=== PATIENT | female | born 1960 | race Caucasian/White ===

== ENCOUNTER → 2018-07-10 14:57 | Outpatient (CLI) | payer OTHER, MEDICAID, SELFPAY ==
--- NOTE | 2018-07-10 15:05 | DI.RAD.S_ITS ---
PROCEDURE: XR ANKLE LT MIN 3V INDICATIONS: ankle pain TECHNIQUE: 3 views of the ankle were acquired. COMPARISON: None. FINDINGS: Bones: No fractures or dislocations. Ankle mortise is normally aligned. No suspicious bony lesions. Soft tissues: No tibiotalar joint effusion. Mild soft tissue swelling overlying the left medial malleolus. IMPRESSION: Mild soft tissue swelling overlying the left medial malleolus. No underlying osseous abnormality of the left ankle to explain patient's reported ankle pain. Dictated by: Buddy Rodriguez M.D. on 07/10/2018 at 15:29 Approved by: Buddy Rodriguez M.D. on 07/10/2018 at 15:32
== END ==
PROVIDERS: Family Provider Specialist; PCP Family Medicine; Visit Provider Physician Assistant
DX: M25.572 Pain in left ankle and joints of left foot (principal); M79.89 Other specified soft tissue disorders
CPT/HCPCS: 73610

== ENCOUNTER → 2018-07-14 07:17 | Outpatient (CLI) | payer OTHER, MEDICAID, SELFPAY ==
--- NOTE | 2018-07-14 07:17 | DI.US.S_ITS ---
PROCEDURE: US PERIPH VENOUS LOW EXTREM LT INDICATIONS: LEFT ANKLE EDEMA, PAIN TECHNIQUE: Real-time imaging, as well as color and pulse Doppler interrogation, were performed of the lower extremity deep veins from the inguinal ligament to the popliteal fossa. COMPARISON: None. FINDINGS: The common femoral, femoral and popliteal veins are normally compressible, and free of intraluminal thrombus. Color and pulse Doppler demonstrate normal phasic intraluminal flow. There is normal augmentation response to distal compression maneuver. IMPRESSION: No deep venous thrombosis identified within the left lower extremity. Dictated by: [facility] Interpreted: German Abad MD on 07/14/2018 at 8:39 Approved by: German Abad M.D. on 07/14/2018 at 13:19
== END ==
PROVIDERS: Family Provider Specialist; PCP Family Medicine; Visit Provider Student in an Organized Health Care Education/Training Program
DX: M79.672 Pain in left foot (principal); M25.472 Effusion, left ankle
CPT/HCPCS: 93971

== ENCOUNTER → 2018-07-22 16:46 | Outpatient (CLI) | payer OTHER, MEDICAID, SELFPAY ==
[2018-07-22 18:09] LABS: Blood Urea Nitrogen 21 mg/dL (7-17); Calcium 9.9 mg/dL (8.4-10.2); Carbon Dioxide 29 mmol/L (22-32); Chloride 104 mmol/L (98-107); Estimated Glomerular Filt Rate > 60.0 mL/min (>60); Glucose 95 mg/dL (70-100); HEMOLYSIS < 15 (0-50); Sodium 141 mmol/L (137-145)
[2018-07-22 18:28] LABS: Vitamin D 25 Hydroxy (D3) 35.2 ng/mL (30.0-100.0)
== END ==
PROVIDERS: Family Provider Specialist; PCP Family Medicine; Visit Provider Student in an Organized Health Care Education/Training Program
DX: E55.9 Vitamin D deficiency, unspecified (principal); Z79.1 Long term (current) use of non-steroidal anti-inflammatories (NSAID)
CPT/HCPCS: 36415; 80048; 82306

== ENCOUNTER → 2019-01-27 08:47 | Outpatient (CLI) | payer OTHER, SELFPAY ==
[2019-01-27 09:42] LABS: Influenza A - CEPHEID Flu A NEGATIVE (NEGATIVE); Influenza B - CEPHEID Flu B NEGATIVE (NEGATIVE)
== END ==
PROVIDERS: Family Provider Specialist; PCP Student in an Organized Health Care Education/Training Program; Visit Provider Student in an Organized Health Care Education/Training Program
DX: R05 Cough (principal)
CPT/HCPCS: 87502

== ENCOUNTER 2020-07-14 19:05 | Emergency (ER) | payer OTHER, SELFPAY ==
[2020-07-14 19:14] VITALS: BP 132/66; PULSE 69; RESP 12; TEMP 36.4; O2SAT 98
--- NOTE | 2020-07-14 19:17 | DI.RAD.S_ITS ---
PROCEDURE: XR KNEE RT 3V INDICATIONS: fall right knee pain unable to bear weight TECHNIQUE: 3 views of the knee were acquired. COMPARISON: None. FINDINGS: Bones: Comminuted patellar fracture. No suspicious bony lesions. Soft tissues: Moderately large joint effusion. No suspicious soft tissue calcifications. IMPRESSION: Comminuted patellar fracture. Moderately large effusion. Dictated by: John Kamara M.D. on 07/14/2020 at 19:53 Approved by: John Kamara M.D. on 07/14/2020 at 19:53
--- NOTE | 2020-07-14 19:51 | ED.LOWEXIN ---
HPI - Extremity Injury (Lower) General Chief Complaint: Extremity Injury, Lower Stated Complaint: FALL, right knee, pain worsening Time Seen by Provider: 07/14/20 19:47 Source: patient and family Mode of arrival: Family Vehicle Limitations: no limitations History of Present Illness HPI Narrative: 59-year-old female nonsmoker with history of migraines presents with her in the chief complaint of a ground level fall earlier tonight in which she fell forward onto her right kneecap. She initially felt some pain but was able to ambulate in since the event she has had increasing pain and difficulty ambulating. She denies any numbness, tingling weakness. She denies any history of this. These her pain is worse when she moves and improves with rest. MD complaint: knee injury Onset (ago): hour(s) Type of Injury: blunt Place: street/outdoors Severity: moderate Relieving factors: rest Exacerbating factors: nothing Context: fall, direct blow and walking Associated symptoms: swelling and able to partially bear weight Other symptoms: none Treatments prior to arrival: cold therapy Related Data Previous Rx's Medication Instructions Recorded sumatriptan succinate 100 mg tablet 100 mg PO Q2H PRN #12 tab MDD 200mg 12/24/19 sumatriptan succinate 6 mg/0.5 mL 6 mg SUBCUT Q1H #1 ml MDD 12mg 12/30/19 subcutaneous pen injector hydrocodone-acetaminophen 1 tab PO Q4-6H PRN #20 tab 07/14/20 Allergies Allergy/AdvReac Type Severity Reaction Status Date / Time codeine [CODEINE] Allergy Unknown Verified 07/14/20 19:16 walnut oil Allergy Unknown Uncoded 07/14/20 19:16 Review of Systems Constitutional Constitutional: Denies chills, Denies fatigue, Denies fever(s), Denies frequent falls, Denies lethargy and Denies weakness Eyes Eyes: Denies change in vision, Denies eye discharge, Denies irritation and Denies loss of vision ENT Ears, Nose, Mouth, and Throat: Denies change in voice, Denies dizziness, Denies neck pain, Denies sore throat and Denies throat swelling Cardiovascular Cardiovascular: Denies chest pain, Denies irregular heart rhythm, Denies lightheadedness, Denies palpitations, Denies dyspnea, Denies dyspnea on exertion and Denies orthopnea Respiratory Respiratory: Denies cough, Denies dyspnea, Denies dyspnea on exertion and Denies wheezing Gastrointestinal Gastrointestinal: Denies abdominal pain, Denies change in bowel habits, Denies diarrhea, Denies nausea and Denies vomiting Musculoskeletal Musculoskeletal: Reports arthralgias, Reports joint swelling, Denies neck pain and Denies numbness Integumentary/Breasts Skin/Breast: Denies pruritus, Denies erythema, Denies rash and Denies wounds Neurologic Neurologic: Denies behavioral changes, Denies confusion, Denies dizziness, Denies frequent falls, Denies loss of vision, Denies numbness and Denies weakness Psychiatric Psychiatric: Denies anxiety, Denies behavioral changes, Denies confusion, Denies depression, Denies homicidal ideation and Denies suicidal ideation Endocrine Endocrine: Denies fatigue, Denies flushing and Denies palpitations Hematologic/Lymphatic Hematologic/Lymphatic: Denies easy bruising Allergic/Immunologic Allergic/Immunologic: Denies urticaria, Denies throat swelling and Denies wheezing Patient History Medical History Acne (1973) Acute kidney failure (1989) Anxiety (~1970) Chronic back pain (2011) Colon polyps (2014) Depression (~1970) Disorder (1960) Fractures (1982) Hantavirus infection (1995) History of pre-eclampsia (1989) HPV in female (2010) Infertility (1986) Kidney stones (2010) Left foot pain Macular hole (2015) Macular hole of left eye (02/16/16) Migraine with aura and without status migrainosus, not intractable (12/27/14) Migraines (~1970) Mumps (1968) PAT (paroxysmal atrial tachycardia) (1981) Peritonsillar abscess (2011) Plantar warts (1974) PTSD (post-traumatic stress disorder) (1979) Restless leg syndrome (~1979) Scoliosis (~1970) Sleep apnea (2000) Tuberculosis (1984) Uterine polyp (2014) Surgical History Hx of breast surgery (2002) Hx of lithotripsy (2013) Hx of oral surgery (1973) Hx of surgical procedure (2002) Hx of vitrectomy (02/2016) Status post bunionectomy (1985) Status post hysteroscopy (2014) Family History Brother Age: 60 Asperger's syndrome Child Age: 30 Obsessive-compulsive disorder, unspecified type Sensory processing difficulty Father Heart failure, unspecified heart failure chronicity, unspecified heart failure type Mother Macular degeneration Myocardial infarction Grandfather Heart disease Grandmother Heart disease Grandfather Myocardial infarction Grandmother Heart failure, unspecified heart failure chronicity, unspecified heart failure type Sister High cholesterol Sister Brain tumor Sister Cancer Social History Smoking Status: Never smoker Smoking Status: Never smoker Substance Use Type: does not use Exam Narrative Exam Narrative: GEN: AOx3 and in mild distress EYES: Pupils are equal, round, and reactive to light and accommodation. Extraoccular muscles are intact bilaterally. There is no subconjunctival hemorrhage or exudate. CHEST: Lungs are clear to auscultation bilaterally and free of wheezes, rales, or rhonchi. Heart rate is regular rhythm, there are no murmurs, clicks, rubs, or gallops. There is no chest wall tenderness. ABD: Abdomen is soft and nontender. There is no guarding or rebound. Bowel sounds are normal in all 4 quadrants. There is no mass or organomegaly. EXT: Full but painful range of motion of right knee with superficial abrasion, moderate effusion. No obvious joint laxity. Patellar reflex and tacked. No numbness, tingling or weakness. SKIN: Warm, pink, and dry. No erythema or rash Initial Vital Signs Initial Vital Signs: Vital Signs Temperature 97.5 F L 07/14/20 19:14 Pulse Rate 69 07/14/20 19:14 Respiratory Rate 12 07/14/20 19:14 Blood Pressure 132/66 07/14/20 19:14 Pulse Oximetry 98 07/14/20 19:14 Procedures Orthopedic Splinting/Casting Injury #1: Side: right Lower Extremity Injury Location: knee Lower Extremity Immobilizer: knee immobilizer Other Orthopedic Equipment: crutches Post splinting neuro exam: intact Post splinting vascular exam: intact Placed by: Nursing Course Orders Ordered: Discontinued Medications Hydrocodone Bitart/Acetaminophen (Hydrocodone/Acet 5/325 Prepack) 1 bottle MISC SEEINSTR ONE Stop: 07/14/20 20:09 Last Admin: 07/14/20 20:12 Dose: 1 bottle Documented by: DEMARCUS Consultations Consultation #1: Discussed with on-call Orthopedics, recommends knee immobilizer, crutches, nonweightbearing close follow-up Vital Signs Vital signs: Vital Signs - 8 hr 07/14/20 19:14 Temperature 97.5 F L Pulse Rate 69 Respiratory Rate 12 Blood Pressure 132/66 Pulse Oximetry 98 MDM - Extremity Injury (Lower) Imaging Data Extremity x-ray #1: My Impression: Nuha Rothman 59 F [address] [id number] ReportSigned Patient: Nuha Rothman LMR#: [id number]: 1960cct:[id number]/Sex: 59 / FDate of Service: 07/14/20Loc: EDAccession Number: [id number] Procedure: XR knee RT 3V Ordering Provider: Alfredo Rivers D.O. PROCEDURE: XR KNEE RT 3V INDICATIONS: fall right knee pain unable to bear weight TECHNIQUE: 3 views of the knee were acquired. COMPARISON: None. FINDINGS: Bones: Comminuted patellar fracture. No suspicious bony lesions. Soft tissues: Moderately large joint effusion. No suspicious soft tissue calcifications. IMPRESSION: Comminuted patellar fracture. Moderately large effusion. Dictated by: John Kamara M.D. on 07/14/2020 at 19:53 Approved by: John Kamara M.D. on 07/14/2020 at 19:53 Discharge Plan Departure Patient Disposition: Home Clinical Impression: Right patella fracture Qualifiers: Encounter type: initial encounter Fracture type: closed Fracture morphology: comminuted Activity Restrictions/Additional Instructions: *You have been diagnosed with [ground level fall with patella fracture] *What to do: *Please continue to take your regular medications as directed. [ ] New medication prescriptions sent to your pharmacy: [ ] [x ] New medication written as a paper prescription [ ] No new medications given *Use crutches, and NO WEIGHT BEARING until follow up. *Please follow up with Dr. Burns with [facility] in 2-3 days, call for an appointment. Let them know you were seen in the Emergency Department and that we ask that you be seen in follow up. We will electronically transmit a record of today's note if your PCP is in our system *If you do not have a primary care provider please contact the [facility] Resource line at [phone]. They will ask some questions about your medical history and help get you set up with a doctor in the community. *Return to Emergency Department if you should have any new, worsening or concerning symptoms, such as [fever greater than 101 F, shaking chills, worsening pain, persistent vomiting or other bothersome symptoms] Prescriptions: New hydrocodone-acetaminophen 5-325 mg tablet 1 tab PO Q4-6H PRN (Reason: pain) Qty: 20 RF: 0 No Action sumatriptan succinate [Imitrex] 100 mg tablet 100 mg PO Q2H MDD 200mg PRN (Reason: migraine headache) Qty: 12 RF: 11 sumatriptan succinate 6 mg/0.5 mL pen injector 6 mg SUBCUT Q1H MDD 12mg Qty: 1 RF: 11 Referrals: Ed Castorena MD [Primary Care Provider] - Rodolfo Burns MD [Physician] -
[2020-07-14] MEDS: HYDROCODONE/ACET 5/325 PREPACK 1 BOTTLE MISC (20:12)
[2020-07-14 20:41] VITALS: BP 132/80; PULSE 72; RESP 18; O2SAT 98
== END 2020-07-14 20:41 | disposition home or self-care (01) ==
PROVIDERS: Emergency Provider Emergency Medicine; Family Provider Specialist; PCP Student in an Organized Health Care Education/Training Program
DX: S82.044A Nondisplaced comminuted fracture of right patella, initial encounter for closed fracture (principal); W19.XXXA Unspecified fall, initial encounter
CPT/HCPCS: 73562; 99283

== ENCOUNTER → 2021-02-02 15:53 | Outpatient (CLI) | payer OTHER, SELFPAY ==
--- NOTE | 2021-02-02 | DI.MG.S_ITS ---
BILATERAL DIGITAL SCREENING MAMMOGRAM 3D/2D WITH CAD: 02/02/2021 CLINICAL: Routine screening. Comparison is made to exams dated: 04/17/2017 mammogram, 01/09/2016 mammogram - [facility], and 10/14/2011 mammogram - [facility]. The tissue of both breasts is heterogeneously dense. This may lower the sensitivity of mammography. Current study was also evaluated with a Computer Aided Detection (CAD) system. No significant masses, calcifications, or other findings are seen in either breast. There has been no significant interval change. IMPRESSION: NEGATIVE There is no mammographic evidence of malignancy. A 1 year screening mammogram is recommended. This exam was interpreted at Station ID: [id number]. NOTE: For mammograms, a report in lay terms will be sent to the patient. Approximately 15% of breast malignancies will not be visualized mammographically. In the management of a palpable breast mass, a negative mammogram must not discourage biopsy of a clinically suspicious lesion. Electronically Signed By: Salvatore douglas/judy:02/02/2021 16:43:39 letter sent: Normal Exam ACR BI-RADS Category 1: Negative [id number]
== END ==
PROVIDERS: Family Provider Specialist; PCP Student in an Organized Health Care Education/Training Program; Referring Provider Student in an Organized Health Care Education/Training Program; Visit Provider Student in an Organized Health Care Education/Training Program
DX: Z12.31 Encounter for screening mammogram for malignant neoplasm of breast (principal)
CPT/HCPCS: 77063; 77067

== ENCOUNTER 2021-03-18 18:27 | Inpatient (IN) | payer OTHER, SELFPAY ==
[2021-03-18 18:30] VITALS: BP 146/64; PULSE 75; RESP 20; TEMP 36.9; O2SAT 99
--- NOTE | 2021-03-18 18:53 | DI.CT.S_ITS ---
PROCEDURE: CT KIDNEY URETER BLADDER (KUB) INDICATIONS: severe, sudden lower abdominal pain TECHNIQUE: Axial sections were acquired from the lung bases to the pubic symphysis. Coronal and sagittal reformats were performed. For radiation dose reduction, the following was used: automated exposure control, adjustment of mA and/or kV according to patient size. COMPARISON: None. FINDINGS: Image quality: Excellent. Lung bases: Unremarkable. Heart: No significant findings. Small hiatal hernia. URINARY: Right Kidney: No stones or hydronephrosis. Right Ureter: No hydroureter. Left Kidney: No stones or hydronephrosis. Left Ureter: No hydroureter. Bladder: Decompressed. No stones. ABDOMEN: Liver: Small cysts in the right lobe. Gallbladder: Unremarkable. Biliary ducts: Unremarkable. Pancreas: Unremarkable. Spleen: Unremarkable. Adrenal Glands: Unremarkable. Stomach and Bowel: There is fecalization within the ileum. The ileum is mildly dilated. No discrete transition point is identified. The stomach is not distended. Small hiatal hernia. Scattered colonic diverticuli. No diverticulitis demonstrated. The appendix is not identified. Peritoneum: No abnormal intraperitoneal fluid. No free air. Ventral Wall: No hernia. Abdominal Nodes: No enlarged retroperitoneal or mesenteric lymph nodes. Vessels: Aorta and inferior vena cava are normal in size. PELVIS: Pelvic Organs: Anteverted uterus. Suspect calcified fibroid. No free fluid seen. Pelvic Nodes: Unremarkable. Miscellaneous: No inguinal hernias are seen. Bones: Mild DDD at L5-S1. No compression fracture. IMPRESSION: 1. Mildly dilated ileum with fecalization. This is concerning for developing or early small bowel obstruction. Adynamic ileus is also in the differential diagnosis. 2. Small hiatal hernia. 3. No free fluid is seen. 4. No kidney stones. No hydronephrosis. Comment: Findings were discussed with Alfredo Rivers at the time of dictation. Dictated by: Abdi Jaeger M.D. on 03/18/2021 at 19:26 Approved by: Abdi Jaeger M.D. on 03/18/2021 at 19:34
[2021-03-18 18:56] LABS: Add Manual Diff / Slide Review NO; Basophils Absolute Auto 0 /uL (0-100); Basophils Percent Auto 0.4 % (0-2); Eosinophils Absolute Auto 200 /uL (0-450); Eosinophils Percent Auto 2.1 % (2-4); Hematocrit 43.3 % (36-46); Lymphocytes Absolute Auto 1800 /uL (1100-4500); Lymphocytes Percent Auto 23.6 % (25-40); Mean Corpuscular HGB Conc 34.6 % (30-36); Mean Corpuscular Hemoglobin 31.3 PG (26-34); Mean Corpuscular Volume 90.6 fL (80-100); Monocytes Absolute Auto 600 /uL (0-900); Monocytes Percent Auto 7.6 % (3-14); Neutrophils Absolute Auto 5000 /uL (1500-7000); Neutrophils Percent Auto 66.3 % (50-75); Platelet Count 237 X10^3/uL (150-400); Red Blood Cell Count 4.78 X10^6/uL (4.0-5.2); Red Cell Distribution Width 13.8 % (11.6-14.8); White Blood Cell Count 7.6 X10^3/uL (4.5-11.0)
[2021-03-18 19:04] LABS: Alanine Aminotransferase 23 IU/L (<35); Albumin 4.7 g/dL (3.5-5.0); Albumin Globulin Ratio 1.4 (1.0-2.8); Alkaline Phosphatase 86 U/L (38-126); Aspartate Aminotransferase 31 IU/L (14-36); BUN Creatinine Ratio 24.7 (6-22); Bilirubin Total 0.3 mg/dL (0.2-1.3); Blood Urea Nitrogen 18 mg/dL (7-17); Calcium 9.7 mg/dL (8.4-10.2); Carbon Dioxide 31 mmol/L (22-32); Chloride 105 mmol/L (98-107); Estimated Glomerular Filt Rate > 60.0 mL/min (>60); Globulin 3.4 g/dL (1.7-4.1); Glucose 103 mg/dL (80-110); HEMOLYSIS < 15 (0-50); Lipase 95 U/L (23-300); Potassium 4.5 mmol/L (3.4-5.1); Sodium 141 mmol/L (137-145); Total Protein 8.1 g/dL (6.3-8.2)
[2021-03-18] MEDS: ONDANSETRON 4 MG/2 ML INJ IV (19:04)
[2021-03-18] MEDS: KETOROLAC 30 MG/ML VIAL 15 MG IV (19:04)
[2021-03-18 19:22] VITALS: BP 126/77; PULSE 66; RESP 18; O2SAT 98
--- NOTE | 2021-03-18 19:58 | ED.ABDPAIN ---
HPI - Abdominal Pain General Chief Complaint: Abdominal Pain Stated Complaint: Severe Abd Pain, Possible Kidney Stone Time Seen by Provider: 03/18/21 18:42 Source: patient Mode of arrival: Ambulatory History of Present Illness HPI narrative: 60-year-old female nonsmoker with history of kidney stones and migraines presents with her in the chief complaint of which she is convinced is another kidney stone. She had a relatively sudden onset and lower abdominal pelvic discomfort that at times seems to worsen without any obvious provocation but other times seems to worsen with motion. She is nauseated but denies any vomiting. She denies any change in medications or diet. She denies fever or chills. He has had no dysuria, frequency or urgency and denies back pain Related Data Previous Rx's Medication Instructions Recorded sumatriptan succinate 100 mg 100 mg PO Q2H PRN #12 tab MDD 200mg 11/01/20 tablet (Imitrex) carbamazepine 200 mg 200 mg PO BID #180 tab 12/29/20 tablet,extended release,12 hr sumatriptan succinate 6 mg/0.5 mL 6 mg (0.5 mL) SUBCUT Q1H #18 ml 03/02/21 subcutaneous pen injector MDD 12mg Allergies Allergy/AdvReac Type Severity Reaction Status Date / Time codeine [CODEINE] Allergy Unknown Verified 10/23/20 13:16 walnut oil Allergy Unknown Uncoded 10/23/20 13:16 Review of Systems Review of Systems Narrative: GENERAL: Denies chills, fatigue, malaise, fever, sweats. HEENT: Denies sinus pain, ear pain, sore throat, difficulty swallowing, dizziness. RESPIRATORY: Denies dyspnea, cough, wheezing, hemoptysis, sputum. CARDIOVASCULAR: Denies chest pain, palpitations, orthopnea, edema, GASTROINTESTINAL: See HPI : Denies dysuria, frequency, incontinence, hematuria, urinary retention. MUSCULOSKELETAL: denies weakness, joint pain, or bony pain SKIN: Denies rash, skin lesions, or other NEUROLOGIC: Denies weakness, headache, numbness, change in speech, confusion, seizures, incoordination. PSYCHIATRIC: No concerning psychosocial issues. 12 point review of systems is negative except for those stated above Patient History Medical History Acne (1973) Acute kidney failure (1989) Anxiety (~1970) Chronic back pain (2011) Colon polyps (2015) Depression (~1970) Disorder (196) Fractures (1982) Hantavirus infection (1995) History of pre-eclampsia (1989) HPV in female (2010) Infertility (1986) Kidney stones (2010) Left foot pain Macular hole (2015) Macular hole of left eye (02/16/16) Migraine with aura and without status migrainosus, not intractable (12/27/14) Migraines (~1970) Mumps (1968) PAT (paroxysmal atrial tachycardia) (1981) Peritonsillar abscess (2011) Plantar warts (1974) PTSD (post-traumatic stress disorder) (1979) Restless leg syndrome (~1979) Scoliosis (~1970) Sleep apnea (2000) Tuberculosis (1984) Uterine polyp (2014) Surgical History Hx of breast surgery (2002) Hx of lithotripsy (2013) Hx of oral surgery (1973) Hx of surgical procedure (2002) Hx of vitrectomy (02/2016) Status post bunionectomy (1985) Status post hysteroscopy (2014) Family History Brother Age: 60 Asperger's syndrome Child Age: 30 Obsessive-compulsive disorder, unspecified type Sensory processing difficulty Father Heart failure, unspecified heart failure chronicity, unspecified heart failure type Mother Macular degeneration Myocardial infarction Grandfather Heart disease Grandmother Heart disease Grandfather Myocardial infarction Grandmother Heart failure, unspecified heart failure chronicity, unspecified heart failure type Sister High cholesterol Sister Brain tumor Sister Cancer Social History household members: spouse Smoking Status: Never smoker alcohol intake: never Smoking Status: Never smoker Substance Use Type: does not use Exam Narrative Exam Narrative: GENERAL: 60 year old patient appears stated age. Well-developed patient, in mild distress. Clearly in pain and pacing in the room, rubbing her lower abdomen HEAD: Atraumatic. Normocephalic. EYES: Pupils equal round and reactive. Extraocular motions intact. No scleral icterus. No injection or drainage. ENT: Nose without bleeding, purulent drainage. Throat without erythema, tonsillar hypertrophy or exudate. Airway patent. NECK: Trachea midline. Non tender CARDIOVASCULAR: Regular rate and rhythm without murmurs, gallops, or rubs. RESPIRATORY: Clear to auscultation. Breath sounds equal bilaterally. No wheezes, rales, or rhonchi. GASTROINTESTINAL: Abdomen soft, tender across the lower abdomen, bowel sounds present in all 4 quadrants nondistended. EXTREMITIES: No edema or joint tenderness. BACK: Nontender without deformity or crepitance. No flank tenderness. NEURO: AOx3. SKIN: No rash or erythema of visible areas Initial Vital Signs Initial Vital Signs: Vital Signs Temperature 98.4 F 03/18/21 18:30 Pulse Rate 75 03/18/21 18:30 Respiratory Rate 20 03/18/21 18:30 Blood Pressure 146/64 H 03/18/21 18:30 Pulse Oximetry 99 03/18/21 18:30 Course Orders Ordered: ED Orders 03/18/21 18:45 Complete Blood Count AUTO DIFF Stat Comprehensive Metabolic Panel Stat Lipase Stat 03/18/21 18:53 CT kidney ureter bladder (KUB) Stat 03/18/21 19:45 COVID19 -Nasal swab/Pre-Proc Stat Carbamazepine (Carbamazepine Xr 100 Mg Tab) 200 mg PO BID MARIAELENA Hydromorphone HCl (Hydromorphone 1 Mg Inj) 1 mg IV Q6H PRN PRN Reason: Pain, Severe (7-10) Last Admin: 03/18/21 23:56 Dose: 1 mg Documented by: KIMMYITH Dextrose/Sodium Chloride (Dextrose 5%-0.45% Ns) 1,000 mls @ 150 mls/hr IV CONT MARIAELENA Last Admin: 03/18/21 23:56 Dose: 150 mls/hr Documented by: MXSMITH Naloxone HCl (Naloxone 0.4 Mg/Ml Vial) 0.2 mg IV Q2MIN PRN PRN Reason: Opiate Reversal Ondansetron HCl (Ondansetron 4 Mg/2 Ml Inj) 4 mg IV Q8HR PRN PRN Reason: Nausea And Vomiting Sumatriptan Succinate (Sumatriptan 25 Mg Tablet) 50 mg PO Q2H PRN PRN Reason: Headache Sumatriptan Succinate (Sumatriptan 6 Mg/0.5 Ml Vial) 6 mg SUBCUT Q2H PRN PRN Reason: Headache Discontinued Medications Ketorolac Tromethamine (Ketorolac 30 Mg/Ml Vial) 15 mg IV NOW ONE Stop: 03/18/21 18:54 Last Admin: 03/18/21 19:04 Dose: 15 mg Documented by: OSVALDO Ondansetron HCl (Ondansetron 4 Mg/2 Ml Inj) 4 mg IV NOW ONE Stop: 03/18/21 18:54 Last Admin: 03/18/21 19:04 Dose: 4 mg Documented by: OSVALDO Reevaluation(s) Reevaluation #1: Significant improvement after above-stated therapies Vital Signs Vital signs: Vital Signs - 8 hr 03/18/21 18:30 03/18/21 19:22 03/18/21 20:05 Temperature 98.4 F Pulse Rate 75 66 70 Respiratory Rate 20 18 17 Blood Pressure 146/64 H 126/77 126/72 Pulse Oximetry 99 98 98 MDM - Abdominal Pain Lab Data Result diagrams: 03/18/21 18:45 03/18/21 18:45 Labs: Lab Results 03/18/21 03/18/21 03/18/21 Range/Units 18:45 18:45 19:45 WBC 7.6 (4.5-11.0) X10^3/uL RBC 4.78 (4.0-5.2) X10^6/uL Hgb 15.0 (12.0-16.0) g/dL Hct 43.3 (36-46) % MCV 90.6 (80-100) fL MCH 31.3 (26-34) PG MCHC 34.6 (30-36) % RDW 13.8 (11.6-14.8) % Plt Count 237 (150-400) X10^3/uL Neut % (Auto) 66.3 (50-75) % Lymph % (Auto) 23.6 L (25-40) % [place] % (Auto) 7.6 (3-14) % Eos % (Auto) 2.1 (2-4) % Baso % (Auto) 0.4 (0-2) % Neut # (Auto) 5000 (1113-4468) /uL Lymph # (Auto) 1800 (9532-3587) /uL [place] # (Auto) 600 (0-900) /uL Eos # (Auto) 200 (0-450) /uL Baso # (Auto) 0 (0-100) /uL Sodium 141 (137-145) mmol/L Potassium 4.5 (3.4-5.1) mmol/L Chloride 105 (98-107) mmol/L Carbon Dioxide 31 (22-32) mmol/L BUN 18 H (7-17) mg/dL Creatinine 0.73 (0.52-1.04) mg/dL Estimated GFR > 60.0 (>60) mL/min BUN/Creatinine Ratio 24.7 H (6-22) Glucose 103 (80-110) mg/dL Calcium 9.7 (8.4-10.2) mg/dL Total Bilirubin 0.3 (0.2-1.3) mg/dL AST 31 (14-36) IU/L ALT 23 (<35) IU/L Alkaline Phosphatase 86 (38-126) U/L Total Protein 8.1 (6.3-8.2) g/dL Albumin 4.7 (3.5-5.0) g/dL Globulin 3.4 (1.7-4.1) g/dL Albumin/Globulin Ratio 1.4 (1.0-2.8) Lipase 95 (23-300) U/L SARS-CoV-2 (PCR) Negative (Negative) Point of care testing: Urine Dip Bedside Urine Glucose Negative Bedside Urine Bilirubin - Negative Bedside Urine Ketone - Negative Urine Specific [place] 1.015 Bedside Urine Occult Blood - Negative Bedside Urine pH 5.5 Bedside Urine Protein - Negative Bedside Urine Urobilinogen - Negative Bedside Urine Nitrite - Negative Bedside Urine Leukocytes - Negative Esterase Imaging Data CT scan - abdomen/pelvis: Radiologist's Impression: Nuha Rothman??60??F??1960 ? Allergy/Adv: codeine, [walnut oil] Close Abdomen/Pelvis CT (Signed) Abdi Jaeger - 03/18/21 Mammogram Screening (Signed) Salvatore Denise - 02/02/21 Knee X-Ray (Signed) John Kamara - 07/14/20 Vascular Ultrasound (Signed) German Abad - 07/14/18 Ankle X-Ray (Signed) Buddy Rodriguez - 07/10/18 Launch?[address] [address] [address] Scan Report Signed Patient: Nuha Rothman MR#: [id number] : 1960 Acct:[id number] Age/Sex: 60 / F Date of Service: 03/18/21 Loc: ED Accession Number: [id number] ?? Procedure: CT kidney ureter bladder (KUB) Ordering Provider: Alfredo Rivers D.O. PROCEDURE:? CT KIDNEY URETER BLADDER (KUB) ? INDICATIONS:? severe, sudden lower abdominal pain ? TECHNIQUE:? Axial sections were acquired from the lung bases to the pubic symphysis.? Coronal and sagittal reformats were performed.? For radiation dose reduction, the following was used: ?automated exposure control, adjustment of mA and/or kV according to patient size.? ? COMPARISON:? None. ? FINDINGS:? Image quality:? Excellent.? ? Lung bases:? Unremarkable.? ? Heart:? No significant findings.? Small hiatal hernia. ? URINARY: Right Kidney: ? No stones or hydronephrosis.? Right Ureter:? No hydroureter.? ? Left Kidney: ? No stones or hydronephrosis. Left Ureter:? No hydroureter.? ? Bladder:? Decompressed. No stones. ? ? ? ABDOMEN: Liver:? Small cysts in the right lobe.? ? Gallbladder:? Unremarkable.? ? Biliary ducts:? Unremarkable.? ? Pancreas:? Unremarkable.? ? Spleen:? Unremarkable.? ? Adrenal Glands:? Unremarkable.? ? ? Stomach and Bowel:? There is fecalization within the ileum.? The ileum is mildly dilated. ?No discrete transition point is identified.? The stomach is not distended.? Small hiatal hernia.? Scattered colonic diverticuli.? No diverticulitis demonstrated.? The appendix is not identified. Peritoneum:? No abnormal intraperitoneal fluid.? No free air.? ? Ventral Wall: ? No hernia.? Abdominal Nodes:? No enlarged retroperitoneal or mesenteric lymph nodes.? Vessels:? Aorta and inferior vena cava are normal in size.? ? PELVIS: Pelvic Organs:? Anteverted uterus.? Suspect calcified fibroid.? No free fluid seen.? ? Pelvic Nodes: Unremarkable. Miscellaneous: No inguinal hernias are seen. ? ? ? Bones:? Mild DDD at L5-S1.? No compression fracture. ? IMPRESSION:? 1. Mildly dilated ileum with fecalization.? This is concerning for developing or early small bowel obstruction.? Adynamic ileus is also in the differential diagnosis. ? 2. Small hiatal hernia. ? 3. No free fluid is seen. ? 4. No kidney stones.? No hydronephrosis.? ? ? Comment: Findings were discussed with Alfredo Rivers at the time of dictation. ? Dictated by: Abdi Jaeger M.D. on 03/18/2021 at 19:26 ? ? Approved by: Abdi Jaeger M.D. on 03/18/2021 at 19:34 ? MDM Narrative Medical decision making narrative: Patient with lower abdominal pain consistent with prior kidney stones for her, urine showed no blood or sign of infection and CT suggested early bowel obstruction. There is no evidence of transition point, no elevated white blood cell count, pain has been well-controlled in no ongoing vomiting, therefore no NG tube placed. Patient admitted for ongoing stabilization and evaluation. Patient and family understand and agree with the plan Discharge Plan Departure Patient Disposition: Admitted As Inpatient Clinical Impression: Partial small bowel obstruction Admit Date/Time: 03/18/21 20:31 Admit Provider: Nydia Herndon
[2021-03-18 20:04] LABS: COVID19 -Nasal RAPID Negative (Negative)
[2021-03-18 20:05] VITALS: BP 126/72; PULSE 70; RESP 17; O2SAT 98
[2021-03-18 21:04] VITALS: BMI 25.8
[2021-03-18 21:23] VITALS: BP 117/42; PULSE 74; RESP 18; TEMP 36.8; O2SAT 100
--- NOTE | 2021-03-18 23:29 | P.HP_ITS ---
History of Present Illness History of Present Illness Date Patient Seen: 03/18/21 Time Patient Seen: 23:29 Date of Onset of Symptoms: 03/18/21 Chief complaint: Severe Abd Pain, Possible Kidney Stone Narrative: This is a very pleasant 60-year-old female with a past medical history remarkable for migraine disorder and trigeminal neuralgia as well as history of nephrolithiasis. She was in her usual state of health today when she awakened a nd noticed that she had a little bit of a stomach ache. She states that she had a large bowel movement which was larger than normal for her but still continued to have pain. She also awakens with a migraine which is not unusual for her and so she took Advil and her sumatriptan and went back to bed. When she awakened she still was having in what she referred to as a stomachache. She ate some br ead for breakfast and had some cereal for lunch and did not drink much fluids and noticed that her pain gradually increased to the point that a dinner she was unable to finish making dinner and developed nausea and asked her to take her to the ER. The pain was quite significant that she was pacing back and forth. She states that it was less localized but seems similar to the amount of pain she had when she had a kidney stone. She states that she was burping a lot but she had no further bowel movements today and she was not passing any gas. She did not have any vomiting. She has otherwise been in her usual state of health. She denies having fever, chills, cough. She denies neurologic symptoms or any changes in her migraine headaches although overall she has been having increase in her migraines. She states that her triggers for her migraines are insomnia or lack of sleep as well as hypoglycemia. She says she does 10 to be more sensitive to sugar or periods when she can eat she is worried that not being able to eat will contribute to this while she is in the hospital. She was recently started on carbamazepine several months ago for her trigeminal neuralgia. She denies any chest pain or shortness of breath or decreased exercise tolerance. She has some dry skin rashes on her bilateral hips. [employer] systems is otherwise unremarkable Past medical history: 1. Nephrolithiasis. She had 1 episode in 2013 for which she underwent lithotripsy and I believe stent placement and she has not had further problems. 2. Migraine headaches 3. Trigeminal neuralgia 4. 07/13/2020 right patellar fracture 5. Normal spontaneous vaginal delivery x1 6. Hyperplastic colonic polyps, last colonoscopy 2014 Current medications: Carbamazepine 200 mg twice daily Sumatriptan as needed. She takes oral and injectable Allergies: Codeine makes her nauseous Past surgical history: Patient had 2 uterine polyps removed but this was not through the abdomen or peritoneal cavity but was vaginally. No abdominal or pelvic surgeries. Family history: Mom at age 95 from congestive heart failure Dad at 93 from a stroke Sister has hypothyroidism 2 half sisters of cancer Patient's brother with coronary artery disease, he had a stent placed at age 59 Health related behavior: Patient does not smoke and she has never smoked Patient has never drank alcohol Patient exercises but this is been decreased since she fractured her kneecap Social history: Patient is and lives here in and a [place]. 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 She moved here from [place]. 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 She has 1 son who is in his 30s Patient is a member of the [employer] Patient History Medical History Acne (1973) Acute kidney failure (1989) Anxiety (~1970) Chronic back pain (2011) Colon polyps (2014) Depression (~1970) Disorder (1960) Fractures (1982) Hantavirus infection (1995) History of pre-eclampsia (1989) HPV in female (2010) Infertility (1986) Kidney stones (2010) Left foot pain Macular hole (2015) Macular hole of left eye (02/16/16) Migraine with aura and without status migrainosus, not intractable (12/27/14) Migraines (~1970) Mumps (1968) PAT (paroxysmal atrial tachycardia) (1981) Peritonsillar abscess (2011) Plantar warts (1974) PTSD (post-traumatic stress disorder) (1979) Restless leg syndrome (~1979) Scoliosis (~1970) Sleep apnea (2000) Tuberculosis (1984) Uterine polyp (2014) Surgical History Hx of breast surgery (2002) Hx of lithotripsy (2013) Hx of oral surgery (1973) Hx of surgical procedure (2002) Hx of vitrectomy (02/2016) Status post bunionectomy (1985) Status post hysteroscopy (2014) Family & Social History Family History Brother Age: 60 Asperger's syndrome Child Age: 30 Obsessive-compulsive disorder, unspecified type Sensory processing difficulty Father Heart failure, unspecified heart failure chronicity, unspecified heart failure type Mother Macular degeneration Myocardial infarction Grandfather Heart disease Grandmother Heart disease Grandfather Myocardial infarction Grandmother Heart failure, unspecified heart failure chronicity, unspecified heart failure type Sister High cholesterol Sister Brain tumor Sister Cancer Social History: household members spouse Prior Living Arrangements House Safety & Behavioral: Feels Safe in Current Yes Environment Been Physically Hurt or No Threatened By a Person Suicidal Ideation Description None Suicide Plan Description No Plan Tobacco & Substance use: Smoking Status Never smoker alcohol intake never Substance Use Type painkillers Meds Home Medications and Allergies Home Medications Medication Instructions Recorded Confirmed Type sumatriptan succinate 100 mg 100 mg PO Q2H PRN #12 tab MDD 200mg 11/01/20 03/18/21 Rx tablet (Imitrex) carbamazepine 200 mg 200 mg PO BID #180 tab 12/29/20 03/18/21 Rx tablet,extended release,12 hr sumatriptan succinate 6 mg/0.5 mL 6 mg (0.5 mL) SUBCUT Q1H #18 ml 03/02/21 03/18/21 Rx subcutaneous pen injector MDD 12mg Allergies Allergy/AdvReac Type Severity Reaction Status Date / Time codeine [CODEINE] Allergy Unknown Verified 10/23/20 13:16 walnut oil Allergy Unknown Uncoded 10/23/20 13:16 Review of Systems Review of Systems Narrative: 12 point review of systems is negative other than HPI Exam Vital Signs (past 8 hours): - 03/18/21 18:30 03/18/21 19:22 03/18/21 20:05 Temperature 98.4 F Pulse Rate 75 66 70 Respiratory Rate 20 18 17 Blood Pressure 146/64 H 126/77 126/72 Pulse Oximetry 99 98 98 03/18/21 21:23 Temperature 98.2 F Pulse Rate 74 Respiratory Rate 18 Blood Pressure 117/42 L Pulse Oximetry 100 Oxygen Delivery Method Room Air Oxygen Flow Rate 0 Narrative Exam Narrative: This is a well-appearing woman who appears younger than her stated age of 60. She is alert and oriented and lying in the hospital bed. HEENT: Unremarkable Neck: Supple without adenopathy or thyromegaly. No jugular venous distention or bruits Chest: Clear to auscultation without wheezes rhonchi or crackles Cor: Regular rate and rhythm without a murmur Abdomen: Positive bowel sounds x4, slightly tympanitic. Slightly distended. Mild tenderness in the left lower quadrant. No guarding or rebound tenderness. No hepatosplenomegaly Extremities: No edema, pulses intact Neurologic exam is nonfocal. Cranial nerves 2-12 are grossly intact. Bilateral upper and lower extremities neurovascularly intact Objective Labs Result Diagrams: 03/18/21 18:45 03/18/21 18:45 Labs: Laboratory Results - last 24 hr 03/18/21 03/18/21 03/18/21 18:45 18:45 19:45 WBC 7.6 RBC 4.78 Hgb 15.0 Hct 43.3 MCV 90.6 MCH 31.3 MCHC 34.6 RDW 13.8 Plt Count 237 Neut % (Auto) 66.3 Lymph % (Auto) 23.6 L [place] % (Auto) 7.6 Eos % (Auto) 2.1 Baso % (Auto) 0.4 Neut # (Auto) 5000 Lymph # (Auto) 1800 [place] # (Auto) 600 Eos # (Auto) 200 Baso # (Auto) 0 Sodium 141 Potassium 4.5 Chloride 105 Carbon Dioxide 31 BUN 18 H Creatinine 0.73 Estimated GFR > 60.0 BUN/Creatinine Ratio 24.7 H Glucose 103 Calcium 9.7 Total Bilirubin 0.3 AST 31 ALT 23 Alkaline Phosphatase 86 Total Protein 8.1 Albumin 4.7 Globulin 3.4 Albumin/Globulin Ratio 1.4 Lipase 95 SARS-CoV-2 (PCR) Negative Assessment & Plan Assessment & Plan narrative: 60-year-old female admitted for partial small bowel obstruction Plan: Patient will be admitted to the hospital for further treatment and monitoring. She will be NPO tonight. Will give IV fluids in add some glucose due to history of triggers for migraines with hypoglycemia or not eating Unclear etiology given the fact she has had the absence of bowel surgeries. Will consider consulting surgery pending how she does overnight. Will provide pain medication via IV, dilaudid. Patient has tolerated this previously I do not think NG tube is indicated at this time as patient is not nauseous and not vomiting Assessment 2. Trigeminal neuralgia Plan: Will continue outpatient carbamazepine 200 mg twice daily extended release Assessment 3. Migraine headache disorder Plan: Patient has had a increase in these lately. We will continue to treat as outpatient with sumatriptan 65 minutes spent with patient and discussing with nursing as well as with the ER physician in reviewing her chart and formulating a plan. Code status is full code. Time Spent With Patient Critical Care time: I spent a total of [] minutes of critical care time on this patient's care today; this time is exclusive of procedural time.
[2021-03-18] MEDS: HYDROMORPHONE 1 MG INJ IV (23:56)
[2021-03-18] MEDS: DEXTROSE 5%-0.45% NS 1,000 ML 150 ML IV (23:56)
[2021-03-19 05:00] VITALS: BP 92/51; PULSE 59; RESP 16; TEMP 36.7; O2SAT 98
[2021-03-19] MEDS: SUMAtriptan 25 MG TABLET 50 MG PO ×2 (05:36→05:54)
[2021-03-19] MEDS: DEXTROSE 5%-0.45% NS 1,000 ML 150 ML IV ×3 (06:06→22:03)
[2021-03-19] MEDS: ONDANSETRON 4 MG/2 ML INJ IV (06:09)
[2021-03-19 06:24] LABS: Add Manual Diff / Slide Review NO; Basophils Absolute Auto 0 /uL (0-100); Basophils Percent Auto 0.3 % (0-2); Eosinophils Absolute Auto 100 /uL (0-450); Eosinophils Percent Auto 2.9 % (2-4); Hematocrit 37.1 % (36-46); Hemoglobin 12.8 g/dL (12.0-16.0); Lymphocytes Absolute Auto 1300 /uL (1100-4500); Lymphocytes Percent Auto 29.2 % (25-40); Mean Corpuscular HGB Conc 34.5 % (30-36); Mean Corpuscular Hemoglobin 31.4 PG (26-34); Mean Corpuscular Volume 91.1 fL (80-100); Monocytes Absolute Auto 400 /uL (0-900); Monocytes Percent Auto 8.9 % (3-14); Neutrophils Absolute Auto 2600 /uL (1500-7000); Neutrophils Percent Auto 58.7 % (50-75); Platelet Count 191 X10^3/uL (150-400); Red Blood Cell Count 4.07 X10^6/uL (4.0-5.2); Red Cell Distribution Width 13.5 % (11.6-14.8); White Blood Cell Count 4.5 X10^3/uL (4.5-11.0)
[2021-03-19 06:29] LABS: Alanine Aminotransferase 17 IU/L (<35); Albumin 3.5 g/dL (3.5-5.0); Albumin Globulin Ratio 1.4 (1.0-2.8); Alkaline Phosphatase 56 U/L (38-126); Aspartate Aminotransferase 22 IU/L (14-36); BUN Creatinine Ratio 29.7 (6-22); Bilirubin Total 0.3 mg/dL (0.2-1.3); Blood Urea Nitrogen 19 mg/dL (7-17); Calcium 8.4 mg/dL (8.4-10.2); Carbon Dioxide 30 mmol/L (22-32); Chloride 106 mmol/L (98-107); Estimated Glomerular Filt Rate > 60.0 mL/min (>60); Globulin 2.5 g/dL (1.7-4.1); Glucose 120 mg/dL (80-110); HEMOLYSIS < 15 (0-50); Potassium 4.2 mmol/L (3.4-5.1); Sodium 137 mmol/L (137-145)
--- NOTE | 2021-03-19 07:57 | DI.MRI.S_ITS ---
PROCEDURE: MR HEAD/BRAIN WO/W CON INDICATIONS: migraine, dizzy TECHNIQUE: Noncontrast axial T1 spin echo, axial T2 fast spin echo, sagittal and axial FLAIR, coronal T2 fast spin echo, axial gradient echo, axial diffusion and ADC through the brain. After the administration of contrast, axial and coronal 3D VIBE or T1 spin echo with fat saturation through the brain. COMPARISON: None. FINDINGS: Image quality: Excellent. CSF Spaces: Basal cisterns are patent. No extra-axial fluid collections. Ventricles are normal in size and shape. Brain: No midline shift. No intracranial bleeds or masses. No abnormal intracranial enhancement. The brainstem appears normal. Diffusion-weighted images demonstrate no acute ischemic insults. No chronic ischemic insults. Normal intravascular flow voids are present. Skull and face: Calvarial marrow is normal in signal. Orbits appear normal. Sinuses: Sinuses and mastoids appear clear. IMPRESSION: 1. No explanation for headache. 2. No acute process. No recent infarct. Dictated by: Jennifer Marshall M.D. on 03/19/2021 at 11:31 Approved by: Jennifer Marshall M.D. on 03/19/2021 at 11:33
[2021-03-19 08:04] VITALS: BP 112/64; PULSE 64; RESP 14; TEMP 36.4; O2SAT 96
[2021-03-19] MEDS: SODIUM CHLORIDE 0.9% 1,000 ML 1000 ML IV (08:39)
--- NOTE | 2021-03-19 08:42 | CM.DANOTE ---
DCP: Case received, EMR reviewed and met with patient. Introduced self and role. Due to current condition, did not spend a great amount of time with patient. Was able to complete DCP assessment based upon information currently available. Patient is a 60 year old female who admitted yesterday evening to the care of the hospitalist team. PCP: Dr. Castorena. Payer: confirmed: [facility]. Patient came to the hospital via private vehicle secondary to having nausea, as well as severe abdominal pain. Patient has history of kidney stones, as well as migraines, and trigeminal neuralgia. Patient was diagnosed with partial small bowel obstruction. She currently does not have an NG tube. Briefly met with patient, she was sitting up in bed, alert and oriented, she had an emesis bag in front of her. 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 Patient resides here in [place] with her spouse, Talat. 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 She is independent at her baseline. P: DCP to continue to follow for any needs. Patient should be able to go home when she is deemed medically stable. Emelia Lao RN/[employer]orer [employer] Discharge Planning/Care Management CM Discharge Assessment Start: 03/19/21 08:37 Freq: Status: Active Protocol: Document 03/19/21 08:37 (Rec: 03/19/21 08:42 [id number]) Discharge Planning Assessment Assigned Diabetes Physician Emelia Lao RN/[employer] Advance Directives? No History Provided By Patient,Medical Record Prior Living Arrangements House Household Members spouse Type of transporation used prior to Drives own vehicle admit Independent with ADL's Yes Is patient alert and oriented? Yes Caregiver for Another No Barriers to Discharge No Discharge Plan Home Transportation Arrangement Spouse Referrals Initiated None needed Whiteboard Updated in Patient Room with Yes name and ext. # of Diabetes Physician Review Status In Process Next Review Type Continued Stay Review
[2021-03-19] MEDS: SODIUM CHLORIDE 0.9% FLUSH 10 ML IV (08:44)
[2021-03-19] MEDS: SUMAtriptan 6 MG/0.5 ML VIAL SUBCUT (10:01)
[2021-03-19 12:30] VITALS: BP 123/59; PULSE 67; RESP 16; TEMP 35.6; O2SAT 100
--- NOTE | 2021-03-19 13:14 | P.CONS_ITS ---
History of Present Illness Consult details Date Patient Seen: 03/19/21 Time Patient Seen: 13:14 Chief complaint: Severe Abd Pain, Possible Kidney Stone Reason for consult: Concern for small bowel obstruction Narrative: The patient is a 60-year-old woman who was admitted overnight for concern of small bowel obstruction. She had experienced severe abdominal pain yesterday along with nausea and was brought to the emergency department. A CT scan showed a concern for bowel obstruction versus ileus. There was small bowel fecalization of the terminal ileum. She had had a bowel movement yesterday when the pain started. She has not had bowel movement since then but she has passed some gas this morning. She has never had prior abdominal surgery. She is very irritated about the potential cost of her hospitalization. Meds Home Medications and Allergies Home Medications Medication Instructions Recorded Confirmed Type sumatriptan succinate 100 mg 100 mg PO Q2H PRN #12 tab MDD 200mg 11/01/20 03/18/21 Rx tablet (Imitrex) carbamazepine 200 mg 200 mg PO BID #180 tab 12/29/20 03/18/21 Rx tablet,extended release,12 hr sumatriptan succinate 6 mg/0.5 mL 6 mg (0.5 mL) SUBCUT Q1H #18 ml 03/02/21 03/18/21 Rx subcutaneous pen injector MDD 12mg Allergies Allergy/AdvReac Type Severity Reaction Status Date / Time codeine [CODEINE] Allergy Unknown Verified 10/23/20 13:16 walnut oil Allergy Unknown Uncoded 10/23/20 13:16 Exam Vital Signs (past 8 hours): - 03/19/21 08:04 03/19/21 12:30 Temperature 97.5 F L 96.1 F L Pulse Rate 64 67 Respiratory Rate 14 16 Blood Pressure 112/64 123/59 L Pulse Oximetry 96 100 Oxygen Delivery Method Room Air Oxygen Flow Rate 0 Narrative Exam Narrative: Abdomen is soft, nontender, nondistended Objective Labs Result Diagrams: 03/19/21 06:01 03/19/21 06:01 Labs: Laboratory Results - last 24 hr 03/18/21 03/18/21 03/18/21 18:45 18:45 19:45 WBC 7.6 RBC 4.78 Hgb 15.0 Hct 43.3 MCV 90.6 MCH 31.3 MCHC 34.6 RDW 13.8 Plt Count 237 Neut % (Auto) 66.3 Lymph % (Auto) 23.6 L [place] % (Auto) 7.6 Eos % (Auto) 2.1 Baso % (Auto) 0.4 Neut # (Auto) 5000 Lymph # (Auto) 1800 [place] # (Auto) 600 Eos # (Auto) 200 Baso # (Auto) 0 Sodium 141 Potassium 4.5 Chloride 105 Carbon Dioxide 31 BUN 18 H Creatinine 0.73 Estimated GFR > 60.0 BUN/Creatinine Ratio 24.7 H Glucose 103 Calcium 9.7 Total Bilirubin 0.3 AST 31 ALT 23 Alkaline Phosphatase 86 Total Protein 8.1 Albumin 4.7 Globulin 3.4 Albumin/Globulin Ratio 1.4 Lipase 95 SARS-CoV-2 (PCR) Negative 03/19/21 03/19/21 06:01 06:01 WBC 4.5 RBC 4.07 Hgb 12.8 Hct 37.1 MCV 91.1 MCH 31.4 MCHC 34.5 RDW 13.5 Plt Count 191 Neut % (Auto) 58.7 Lymph % (Auto) 29.2 [place] % (Auto) 8.9 Eos % (Auto) 2.9 Baso % (Auto) 0.3 Neut # (Auto) 2600 Lymph # (Auto) 1300 [place] # (Auto) 400 Eos # (Auto) 100 Baso # (Auto) 0 Sodium 137 Potassium 4.2 Chloride 106 Carbon Dioxide 30 BUN 19 H Creatinine 0.64 Estimated GFR > 60.0 BUN/Creatinine Ratio 29.7 H Glucose 120 H Calcium 8.4 Total Bilirubin 0.3 AST 22 ALT 17 Alkaline Phosphatase 56 Total Protein 6.0 L Albumin 3.5 Globulin 2.5 Albumin/Globulin Ratio 1.4 Lipase SARS-CoV-2 (PCR) [facility] Medical History Acne (1973) Acute kidney failure (1989) Anxiety (~1970) Chronic back pain (2011) Colon polyps (2014) Depression (~1970) Disorder (1960) Fractures (1982) Hantavirus infection (1995) History of pre-eclampsia (1989) HPV in female (2010) Infertility (1986) Kidney stones (2010) Left foot pain Macular hole (2015) Macular hole of left eye (02/16/16) Migraine with aura and without status migrainosus, not intractable (12/27/14) Migraines (~1970) Mumps (1968) PAT (paroxysmal atrial tachycardia) (1981) Peritonsillar abscess (2011) Plantar warts (1974) PTSD (post-traumatic stress disorder) (1979) Restless leg syndrome (~1979) Scoliosis (~1969) Sleep apnea (2000) Tuberculosis (1984) Uterine polyp (2014) Surgical History Hx of breast surgery (2002) Hx of lithotripsy (2013) Hx of oral surgery (1973) Hx of surgical procedure (2002) Hx of vitrectomy (02/2016) Status post bunionectomy (1985) Status post hysteroscopy (2014) Family History Brother Age: 60 Asperger's syndrome Child Age: 30 Obsessive-compulsive disorder, unspecified type Sensory processing difficulty Father Heart failure, unspecified heart failure chronicity, unspecified heart failure type Mother Macular degeneration Myocardial infarction Grandfather Heart disease Grandmother Heart disease Grandfather Myocardial infarction Grandmother Heart failure, unspecified heart failure chronicity, unspecified heart failure type Sister High cholesterol Sister Brain tumor Sister Cancer Social History household members: spouse Tobacco & Substance Use Smoking Status: Never smoker alcohol intake: never Assessment & Plan Assessment and plan (1) Partial small bowel obstruction: Status: Acute Plan I do not suspect she has a small-bowel obstruction based on her physical exam, the fact that she has passed some gas this morning and had a bowel movement yesterday, she has not vomited and she has never had abdominal surgery in the past. I recommend advancing diet as tolerates. She can be discharged from a surgical standpoint when she tolerates regular diet. Time Spent With Patient Critical Care time: I spent a total of [] minutes of critical care time on this patient's care today; this time is exclusive of procedural time.
--- NOTE | 2021-03-19 14:27 | P.PN_ITS ---
Subjective Subjective Date Patient Seen: 03/19/21 Time Patient Seen: 08:00 Interval history: She still felt nauseous this morning. SHe complained of headache and dizziness. Her blood pressure was low this morning in the 90s systolic. Exam Vital Signs (past 8 hours): - 03/19/21 08:04 03/19/21 12:30 Temperature 97.5 F L 96.1 F L Pulse Rate 64 67 Respiratory Rate 14 16 Blood Pressure 112/64 123/59 L Pulse Oximetry 96 100 Oxygen Delivery Method Room Air Oxygen Flow Rate 0 Narrative Exam Narrative: GEN: no acute distress PULM: clear bilaterally CV: Regular rate and rhythm without a murmur ABD: soft, nontender, nondistended, diminished bowel sounds Extremities:? No edema Objective Labs Result Diagrams: 03/19/21 06:01 03/19/21 06:01 Labs: Laboratory Results - last 24 hr 03/18/21 03/18/21 03/18/21 18:45 18:45 19:45 WBC 7.6 RBC 4.78 Hgb 15.0 Hct 43.3 MCV 90.6 MCH 31.3 MCHC 34.6 RDW 13.8 Plt Count 237 Neut % (Auto) 66.3 Lymph % (Auto) 23.6 L [place] % (Auto) 7.6 Eos % (Auto) 2.1 Baso % (Auto) 0.4 Neut # (Auto) 5000 Lymph # (Auto) 1800 [place] # (Auto) 600 Eos # (Auto) 200 Baso # (Auto) 0 Sodium 141 Potassium 4.5 Chloride 105 Carbon Dioxide 31 BUN 18 H Creatinine 0.73 Estimated GFR > 60.0 BUN/Creatinine Ratio 24.7 H Glucose 103 Calcium 9.7 Total Bilirubin 0.3 AST 31 ALT 23 Alkaline Phosphatase 86 Total Protein 8.1 Albumin 4.7 Globulin 3.4 Albumin/Globulin Ratio 1.4 Lipase 95 SARS-CoV-2 (PCR) Negative 03/19/21 03/19/21 06:01 06:01 WBC 4.5 RBC 4.07 Hgb 12.8 Hct 37.1 MCV 91.1 MCH 31.4 MCHC 34.5 RDW 13.5 Plt Count 191 Neut % (Auto) 58.7 Lymph % (Auto) 29.2 [place] % (Auto) 8.9 Eos % (Auto) 2.9 Baso % (Auto) 0.3 Neut # (Auto) 2600 Lymph # (Auto) 1300 [place] # (Auto) 400 Eos # (Auto) 100 Baso # (Auto) 0 Sodium 137 Potassium 4.2 Chloride 106 Carbon Dioxide 30 BUN 19 H Creatinine 0.64 Estimated GFR > 60.0 BUN/Creatinine Ratio 29.7 H Glucose 120 H Calcium 8.4 Total Bilirubin 0.3 AST 22 ALT 17 Alkaline Phosphatase 56 Total Protein 6.0 L Albumin 3.5 Globulin 2.5 Albumin/Globulin Ratio 1.4 Lipase SARS-CoV-2 (PCR) [facility] Medical History Acne (1973) Acute kidney failure (1989) Anxiety (~1970) Chronic back pain (2011) Colon polyps (2014) Depression (~1970) Disorder (1960) Fractures (1982) Hantavirus infection (1995) History of pre-eclampsia (1989) HPV in female (2010) Infertility (1986) Kidney stones (2010) Left foot pain Macular hole (2015) Macular hole of left eye (02/16/16) Migraine with aura and without status migrainosus, not intractable (12/27/14) Migraines (~1970) Mumps (1968) PAT (paroxysmal atrial tachycardia) (1981) Peritonsillar abscess (2011) Plantar warts (1974) PTSD (post-traumatic stress disorder) (1979) Restless leg syndrome (~1979) Scoliosis (~1969) Sleep apnea (2000) Tuberculosis (1984) Uterine polyp (2014) Surgical History Hx of breast surgery (2002) Hx of lithotripsy (2013) Hx of oral surgery (1973) Hx of surgical procedure (2002) Hx of vitrectomy (02/2016) Status post bunionectomy (1985) Status post hysteroscopy (2014) Family History Brother Age: 60 Asperger's syndrome Child Age: 30 Obsessive-compulsive disorder, unspecified type Sensory processing difficulty Father Heart failure, unspecified heart failure chronicity, unspeci fied heart failure type Mother Macular degeneration Myocardial infarction Grandfather Heart disease Grandmother Heart disease Grandfather Myocardial infarction Grandmother Heart failure, unspecified heart failure chronicity, unspecified heart failure type Sister High cholesterol Sister Brain tumor Sister Cancer Social History household members: spouse Smoking Status: Never smoker alcohol intake: never Assessment & Plan Assessment & Plan narrative: 1. Abdominal pain -appreciate surgery consult, ruled out SBO -CT shows fecalization, possible consistent with slow transit, ileus -hold carbamazepine due to anti-cholinergic effects -continue IV fluids -advance diet as tolerated -check tegretol level - 2. Trigminal neuralgia -hold carbamezapine for now 3. Migraine headache disorder -has had increase recently -MRI head with no acute process Time Spent With Patient Critical Care time: I spent a total of [] minutes of critical care time on this patient's care today; this time is exclusive of procedural time.
[2021-03-19 16:30] VITALS: BP 111/70; PULSE 97; RESP 14; TEMP 36.3; O2SAT 97
[2021-03-19 20:00] VITALS: BP 131/71; PULSE 70; RESP 18; TEMP 36.2; O2SAT 100
[2021-03-19] MEDS: HYDROMORPHONE 1 MG INJ IV (22:03)
--- NOTE | 2021-03-20 | DI.RAD.S_ITS ---
PROCEDURE: XR GASTROGRAFIN CHALLENGE COMPARISON: None. INDICATIONS: rule out small bowel obstruction FINDINGS: Oral contrast extends from the stomach through small bowel, large bowel and is identified in the rectum. No dilated loops of bowel identified. IMPRESSION: No evidence of small-bowel obstruction. Dictated by: Raiza Burroughs MD, PhD on 03/21/2021 at 10:46 Approved by: Raiza Burroughs MD, PhD on 03/21/2021 at 10:47
--- NOTE | 2021-03-20 04:09 | PC.NURSE ---
Pt stated that even though she is only on a full liquid diet, she feels like nothing is going down and rather staying up on her upper GI feels like indigestion pt not vomiting so far today. Pt ambulated with her around the hallway today.
[2021-03-20 04:11] LABS: Carbamazepine Tegretol Level 4.1 ug/mL (4.0-12.0)
[2021-03-20] MEDS: DEXTROSE 5%-0.45% NS 1,000 ML 150 ML IV (04:26)
[2021-03-20 07:50] VITALS: BP 96/56; PULSE 54; RESP 18; O2SAT 98
--- NOTE | 2021-03-20 08:34 | P.PN_ITS ---
Subjective Subjective Date Patient Seen: 03/20/21 Time Patient Seen: 08:34 Interval history: Still not passing much gas. Feels blocked and she believes she has a bowel obstruction after doing some research. Exam Vital Signs (past 8 hours): - 03/20/21 07:50 Pulse Rate 54 L Respiratory Rate 18 Blood Pressure 96/56 L Pulse Oximetry 98 Oxygen Delivery Method Room Air Oxygen Flow Rate 0 Narrative Exam Narrative: soft, nontender, nondistended Objective Labs Result Diagrams: 03/19/21 06:01 03/19/21 06:01 Labs: Laboratory Results - last 24 hr 03/19/21 08:33 Carbamazepine 4.1 [facility] Medical History Acne (1973) Acute kidney failure (1989) Anxiety (~1970) Chronic back pain (2011) Colon polyps (2014) Depression (~1970) Disorder (1960) Fractures (1982) Hantavirus infection (1995) History of pre-eclampsia (1989) HPV in female (2010) Infertility (1986) Kidney stones (2010) Left foot pain Macular hole (2015) Macular hole of left eye (02/16/16) Migraine with aura and without status migrainosus, not intractable (12/27/14) Migraines (~1970) Mumps (1968) PAT (paroxysmal atrial tachycardia) (1981) Peritonsillar abscess (2011) Plantar warts (1974) PTSD (post-traumatic stress disorder) (1979) Restless leg syndrome (~1980) Scoliosis (~1970) Sleep apnea (2000) Tuberculosis (1984) Uterine polyp (2014) Surgical History Hx of breast surgery (2002) Hx of lithotripsy (2013) Hx of oral surgery (1973) Hx of surgical procedure (2002) Hx of vitrectomy (02/2016) Status post bunionectomy (1985) Status post hysteroscopy (2014) Family History Brother Age: 60 Asperger's syndrome Child Age: 30 Obsessive-compulsive disorder, unspecified type Sensory processing difficulty Father Heart failure, unspecified heart failure chronicity, unspecified heart failure type Mother Macular degeneration Myocardial infarction Grandfather Heart disease Grandmother Heart disease Grandfather Myocardial infarction Grandmother Heart failure, unspecified heart failure chronicity, unspecified heart failure type Sister High cholesterol Sister Brain tumor Sister Cancer Social History household members: spouse Smoking Status: Never smoker alcohol intake: never Assessment & Plan Assessment and plan (1) Partial small bowel obstruction: Status: Acute Plan Gastrografin challenge Time Spent With Patient Critical Care time: I spent a total of [] minutes of critical care time on this patient's care today ; this time is exclusive of procedural time.
[2021-03-20] MEDS: ONDANSETRON 4 MG/2 ML INJ IV (08:44)
[2021-03-20] MEDS: SUMAtriptan 6 MG/0.5 ML VIAL SUBCUT (10:13)
--- NOTE | 2021-03-20 13:23 | P.DS_ITS ---
History of Present Illness History of Present Illness Chief complaint: Severe Abd Pain, Possible Kidney Stone Narrative: Per Dr. Herndon: This is a very pleasant 60-year-old female with a past medical history rem [facility] for migraine disorder and trigeminal neuralgia as well as history of nephrolithiasis.? She was in her usual state of health today when she awakened and noticed that she had a little bit of a stomach ache.? She states that she had a large bowel movement which was larger than normal for her but still continued to have pain.? She also awakens with a migraine which is not unusual for her and so she took Advil and her sumatriptan and went back to bed.? When she awakened she still was having in what she referred to as a stomachache.? She ate some bread for breakfast and had some cereal for lunch and did not drink much fluids and noticed that her pain gradually increased to the point that a dinner she was unable to finish making dinner and developed nausea and asked her to take her to the ER.? The pain was quite significant that she was pacing back and forth.? She states that it was less localized but seems similar to the amount of pain she had when she had a kidney stone.? She states that she was burping a lot but she had no further bowel movements today and she was not passing any gas.? She did not have any vomiting. She has otherwise been in her usual state of health.? She denies having fever, chills, cough.? She denies neurologic symptoms or any changes in her migraine headaches although overall she has been having increase in her migraines.? She states that her triggers for her migraines are insomnia or lack of sleep as well as hypoglycemia.? She says she does 10 to be more sensitive to sugar or periods when she can eat she is worried that not being able to eat will contribute to this while she is in the hospital.? She was recently started on carbamazepine several months ago for her trigeminal neuralgia. She denies any chest pain or shortness of breath or decreased exercise tolerance. She has some dry skin rashes on her bilateral hips. Discharge Providers Provider Date of admission: 03/18/21 20:31 Discharge Date: 03/20/21 Primary care physician: Ed Castorena MD Discharge provider: Barney Mishra MD Summary Hospital Course Discharge Diagnosis: 1. Abdominal pain, probable ileus 2. Trigeminal neuralgia 3. Migraine headache disorder Hospital Course: Ms. Rothman was admitted with abdominal pain. Initial CT of her abdomen was concerning for a partial SBO with evidence of fecalization in the small bowel. However she had a clinically soft abdomen, and was passing flatus. She had a gastrograffin study which showed no obstruction. She has relatively recently started carbamazepine and had the dose increased. This has not improved her overall in her opinion. This medication does have anti-cholinergic side effects, and after discussion with her, she preferred to stop this medication. Other options for her trigeminal neuralgia were discussed, and she was told these were not first line. She was given a script for low dose gabapentin and encouraged to follow up with her PCP for further counseling regarding her headaches. Exam Vital Signs (past 8 hours): Oxygen Delivery Method Room Air Oxygen Flow Rate 0 Narrative Exam Narrative: GEN: no acute distress PULM: clear bilaterally CV: Regular rate and rhythm without a murmur ABD: soft, nontender, nondistended Extremities:? No edema Objective Labs Result Diagrams: 03/19/21 06:01 03/19/21 06:01 [facility] Medical History Acne (1973) Acute kidney failure (1989) Anxiety (~1970) Chronic back pain (2011) Colon polyps (2014) Depression (~1970) Disorder (1960) Fractures (1982) Hantavirus infection (1995) History of pre-eclampsia (1989) HPV in female (2010) Infertility (1986) Kidney stones (2010) Left foot pain Macular hole (2015) Macular hole of left eye (02/16/16) Migraine with aura and without status migrainosus, not intractable (12/27/14) Migraines (~1970) Mumps (1968) PAT (paroxysmal atrial tachycardia) (1981) Peritonsillar abscess (2011) Plantar warts (1974) PTSD (post-traumatic stress disorder) (1979) Restless leg syndrome (~1979) Scoliosis (~1970) Sleep apnea (2000) Tuberculosis (1984) Uterine polyp (2014) Surgical History Hx of breast surgery (2002) Hx of lithotripsy (2013) Hx of oral surgery (1973) Hx of surgical procedure (2002) Hx of vitrectomy (02/2016) Status post bunionectomy (1985) Status post hysteroscopy (2014) Family History Brother Age: 60 Asperger's syndrome Child Age: 30 Obsessive-compulsive disorder, unspecified type Sensory processing difficulty Father Heart failure, unspecified heart failure chronicity, unspecified heart failure type Mother Macular degeneration Myocardial infarction Grandfather Heart disease Grandmother Heart disease Grandfather Myocardial infarction Grandmother Heart failure, unspecified heart failure chronicity, unspecified heart failure type Sister High cholesterol Sister Brain tumor Sister Cancer Social History household members: spouse Smoking Status: Never smoker alcohol intake: never Discharge Plan Discharge Plan Patient Disposition: Home Provider Discharge Comment: Ms. Rothman was admitted with nausea and vomiting and abdominal discomfort. CT scan showed possible ileus vs obstruction. Gastrograffin study showed no obstruction. It is possible her bowels were affected by carbamazepine. This is stopped. For her trigeminal neuralgia she was started on gabapentin Discharge orders & Medications Prescriptions: New gabapentin 100 mg Capsule 100 mg PO TID Qty: 42 0RF Continued sumatriptan succinate [Imitrex] 100 mg tablet 100 mg PO Q2H MDD 200mg PRN (Reason: migraine headache) Qty: 12 11RF sumatriptan succinate 6 mg/0.5 mL pen injector 6 mg SUBCUT Q1H MDD 12mg Qty: 18 3RF Rx Instructions: may repeat dose once in 1 hour if not relieved Discontinued carbamazepine 200 mg tablet extended release 12 hr 200 mg PO BID Qty: 180 2RF Follow up/Referrals: Ed Castorena MD [Primary Care Provider] - Diet/Activity/Treatments Diet: Diet as Tolerated Visit Report/Discharge Packet Instructions: DI for Ileus, DI for Small Bowel Obstruction Discharge Data Primary Care Provider: Ed Castorena
--- NOTE | 2021-03-20 13:36 | PC.NURSE ---
Pt states abdominal pain has somewhat resolved and has had 4 bms-states they are watery and very acidic feeling and smelling. Pt states she no longer has upper abdominal pain but instead has crampy pain like when you have diarrhea and it is in her lower abd/pelvis region. Pt denies needs t this time but states she is very hungry and thirsty and would like to eat. Post gastrogaffin x-rays taken at 1300 and awaiting results in regard to resuming P.O.
[2021-03-20] MEDS: GABAPENTIN 100 MG CAPSULE PO (15:00)
--- NOTE | 2021-03-20 18:08 | PC.NURSE ---
Pt is dressed and ready for discharge home with Spouse. Spouse is at the bedside. IV has been removed. Pt's own meds have been returned from pharmacy. Went over d/c instructions with Pt and Spouse-discussed d/c meds, time of last dose, reviewed stroke education, encouraged fluid intake to prevent constipation or dehydration and discussed follow up. Pt and Spouse denied further questions and Pt was taken out via w/c by NURSING SPECIALIST to pov with Spouse and all belongings.
== END 2021-03-20 18:11 | disposition home or self-care (01) | DRG 390 ==
LOC: ED 20:26 → AC 20:31
PROVIDERS: Internal Medicine; Admitting Provider Family Medicine; Emergency Provider Emergency Medicine; Family Provider Specialist; PCP Student in an Organized Health Care Education/Training Program; Referring Provider Emergency Medicine; Visit Provider Family Medicine
DX: K56.7 Ileus, unspecified (principal); G50.0 Trigeminal neuralgia; G43.909 Migraine, unspecified, not intractable, without status migrainosus; Z20.822 Contact with and (suspected) exposure to COVID-19
CPT/HCPCS: 36415; 70553; 74018; 74176; 80053; 80156; 81003; 83690; 85025; 87635; 96374; 96375; 99284; C9803; J1170; J1885; J2405; J3030

== ENCOUNTER 2021-03-26 22:14 | Emergency (ER) | payer OTHER, SELFPAY ==
[2021-03-26 22:27] VITALS: BP 139/79; PULSE 74; RESP 18; TEMP 36.6; O2SAT 100; BMI 25.4
[2021-03-26] MEDS: diphenhydrAMINE 50 MG/ML VIAL 25 MG IV (22:41)
[2021-03-26] MEDS: FAMOTIDINE 20 MG/2 ML VIAL IV (22:41)
[2021-03-26] MEDS: DEXAMETHASONE 10 MG/ML VIAL IV (22:41)
[2021-03-26 22:51] VITALS: PULSE 66; O2SAT 98
[2021-03-26 22:54] LABS: Add Manual Diff / Slide Review NO; Basophils Absolute Auto 0 /uL (0-100); Basophils Percent Auto 0.5 % (0-2); Eosinophils Absolute Auto 300 /uL (0-450); Eosinophils Percent Auto 4.7 % (2-4); Hematocrit 41.4 % (36-46); Hemoglobin 14.1 g/dL (12.0-16.0); Lymphocytes Absolute Auto 2100 /uL (1100-4500); Lymphocytes Percent Auto 36.8 % (25-40); Mean Corpuscular HGB Conc 34.2 % (30-36); Mean Corpuscular Hemoglobin 31.3 PG (26-34); Mean Corpuscular Volume 91.6 fL (80-100); Monocytes Absolute Auto 600 /uL (0-900); Monocytes Percent Auto 9.8 % (3-14); Neutrophils Absolute Auto 2700 /uL (1500-7000); Neutrophils Percent Auto 48.2 % (50-75); Platelet Count 235 X10^3/uL (150-400); Red Blood Cell Count 4.52 X10^6/uL (4.0-5.2); Red Cell Distribution Width 13.9 % (11.6-14.8); White Blood Cell Count 5.7 X10^3/uL (4.5-11.0)
[2021-03-26 23:00] VITALS: BP 137/74; PULSE 68; O2SAT 98
[2021-03-26 23:15] LABS: Alanine Aminotransferase 23 IU/L (<35); Albumin 4.6 g/dL (3.5-5.0); Albumin Globulin Ratio 1.5 (1.0-2.8); Alkaline Phosphatase 75 U/L (38-126); Aspartate Aminotransferase 28 IU/L (14-36); BUN Creatinine Ratio 31.1 (6-22); Bilirubin Total 0.3 mg/dL (0.2-1.3); Blood Urea Nitrogen 19 mg/dL (7-17); Calcium 9.7 mg/dL (8.4-10.2); Carbon Dioxide 28 mmol/L (22-32); Chloride 107 mmol/L (98-107); Estimated Glomerular Filt Rate > 60.0 mL/min (>60); Globulin 3.1 g/dL (1.7-4.1); Glucose 101 mg/dL (80-110); HEMOLYSIS 16 (0-50); Potassium 4.4 mmol/L (3.4-5.1); Sodium 141 mmol/L (137-145); Total Protein 7.7 g/dL (6.3-8.2)
--- NOTE | 2021-03-26 23:23 | ED.ALLEREA ---
HPI - Allergic Reaction General Chief complaint: Allergic Reaction Stated complaint: swollen tounge, difficulty breathing Time Seen by Provider: 03/26/21 22:19 Source: patient and family Mode of arrival: Ambulatory History of Present Illness HPI narrative: 60-year-old female nonsmoker with recent admission for bowel obstruction thought to be related to medications presents with her in the chief complaint of a relatively sudden onset of swollen tongue about 1 hour prior to her arrival. She had been in her normal state of health and denies any new foods, medications or other obvious trigger. She was started on gabapentin about 1 week ago but denies any other new medications. She has had no runny nose, sore throat or cough. She denies any GI symptoms such as nausea, vomiting or diarrhea. She has no rash. She has no phase or lip swelling. She denies any trouble swallowing or breathing but does admit that it is hard to talk Related Data Previous Rx's Medication Instructions Recorded sumatriptan succinate 100 mg 100 mg PO Q2H PRN #12 tab MDD 200mg 11/01/20 tablet (Imitrex) sumatriptan succinate 6 mg/0.5 mL 6 mg (0.5 mL) SUBCUT Q1H #18 ml 03/02/21 subcutaneous pen injector MDD 12mg duloxetine 20 mg capsule,delayed 20 mg PO BID #30 cap 03/27/21 release Allergies Allergy/AdvReac Type Severity Reaction Status Date / Time codeine [CODEINE] Allergy Unknown Verified 03/27/21 15:14 carbamazepine AdvReac Severe Small Verified 03/27/21 15:31 Bowel Obstruction gabapentin AdvReac Severe Angioedema Verified 03/27/21 15:31 walnut oil Allergy Unknown Uncoded 03/27/21 15:14 Review of Systems Review of Systems Narrative: GENERAL: Denies chills, fatigue, malaise, fever, sweats. HEENT: See HPI RESPIRATORY: Denies dyspnea, cough, wheezing, hemoptysis, sputum. CARDIOVASCULAR: Denies chest pain, palpitations, orthopnea, edema, GASTROINTESTINAL: Denies nausea, vomiting, abdominal pain, diarrhea, constipation, melena. : Denies dysuria, frequency, incontinence, hematuria, urinary retention. MUSCULOSKELETAL: denies weakness, joint pain, or bony pain SKIN: Denies rash, skin lesions, or other NEUROLOGIC: Denies weakness, headache, numbness, change in speech, confusion, seizures, incoordination. PSYCHIATRIC: No concerning psychosocial issues. 12 point review of systems is negative except for those stated above Patient History Medical History Acne (1973) Acute kidney failure (1989) Anxiety (~1970) Chronic back pain (2011) Colon polyps (2014) Depression (~1970) Disorder (196) Fractures (1982) Hantavirus infection (1995) History of pre-eclampsia (1989) HPV in female (2010) Infertility (1986) Kidney stones (2010) Left foot pain Macular hole (2015) Macular hole of left eye (02/16/16) Migraine with aura and without status migrainosus, not intractable (12/27/14) Migraines (~1970) Mumps (1968) PAT (paroxysmal atrial tachycardia) (1981) Peritonsillar abscess (2011) Plantar warts (1974) PTSD (post-traumatic stress disorder) (1979) Restless leg syndrome (~1979) Scoliosis (~1969) Sleep apnea (2000) Tuberculosis (1984) Uterine polyp (2014) Surgical History Hx of breast surgery (2002) Hx of lithotripsy (2013) Hx of oral surgery (1973) Hx of surgical procedure (2002) Hx of vitrectomy (02/2016) Status post bunionectomy (1985) Status post hysteroscopy (2014) Family History Brother Age: 60 Asperger's syndrome Child Age: 30 Obsessive-compulsive disorder, unspecified type Sensory processing difficulty Father Heart failure, unspecified heart failure chronicity, unspecified heart failure type Mother Macular degeneration Myocardial infarction Grandfather Heart disease Grandmother Heart disease Grandfather Myocardial infarction Grandmother Heart failure, unspecified heart failure chronicity, unspecified heart failure type Sister High cholesterol Sister Brain tumor Sister Cancer Social History household members: spouse Smoking Status: Never smoker alcohol intake: never Smoking Status: Never smoker Substance Use Type: does not use and painkillers Exam Narrative Exam Narrative: GENERAL: [60] year old patient appears stated age. Well-developed patient, in mild distress. Anxious, voice altered HEAD: Atraumatic. Normocephalic. EYES: Pupils equal round and reactive. Extraocular motions intact. No scleral icterus. No injection or drainage. ENT: Tongue minimally swollen, no lip or other intraoral involvement. Managing airway and secretions without difficulty Nose without bleeding, purulent drainage. Throat without erythema, tonsillar hypertrophy or exudate. Airway patent. NECK: Trachea midline. Non tender CARDIOVASCULAR: Regular rate and rhythm without murmurs, gallops, or rubs. RESPIRATORY: Clear to auscultation. Breath sounds equal bilaterally. No wheezes, rales, or rhonchi. GASTROINTESTINAL: Abdomen soft, non-tender, nondistended. EXTREMITIES: No edema or joint tenderness. BACK: Nontender without deformity or crepitance. No flank tenderness. NEURO: AOx3. SKIN: No rash or erythema of visible areas Initial Vital Signs Initial Vital Signs: Vital Signs Temperature 97.9 F 03/26/21 22:27 Pulse Rate 74 03/26/21 22:27 Respiratory Rate 18 03/26/21 22:27 Blood Pressure 139/79 03/26/21 22:27 Pulse Oximetry 100 03/26/21 22:27 Course Orders Ordered: Discontinued Medications Dexamethasone (Dexamethasone 10 Mg/Ml Vial) 10 mg IV NOW ONE Stop: 03/26/21 22:24 Last Admin: 03/26/21 22:41 Dose: 10 mg Documented by: MARIN Diphenhydramine HCl (Diphenhydramine 50 Mg/Ml Vial) 25 mg IV NOW ONE Stop: 03/26/21 22:24 Last Admin: 03/26/21 22:41 Dose: 25 mg Documented by: STONEOR Famotidine (Famotidine 20 Mg/2 Ml Vial) 20 mg IV NOW ONE Stop: 03/26/21 22:24 Last Admin: 03/26/21 22:41 Dose: 20 mg Documented by: MARIN Reevaluation(s) Reevaluation #1: Near complete resolution of symptoms after above-stated therapies patient resting Vital Signs Vital signs: Vital Signs - 8 hr 03/26/21 22:27 03/26/21 22:51 03/26/21 23:00 Temperature 97.9 F Pulse Rate 74 66 68 Respiratory Rate 18 Blood Pressure 139/79 137/74 Pulse Oximetry 100 98 98 MDM - Allergic Reaction Lab Data Result diagrams: 03/26/21 22:42 03/26/21 22:42 Labs: Lab Results 03/26/21 03/26/21 Range/Units 22:42 22:42 WBC 5.7 (4.5-11.0) X10^3/uL RBC 4.52 (4.0-5.2) X10^6/uL Hgb 14.1 (12.0-16.0) g/dL Hct 41.4 (36-46) % MCV 91.6 (80-100) fL MCH 31.3 (26-34) PG MCHC 34.2 (30-36) % RDW 13.9 (11.6-14.8) % Plt Count 235 (150-400) X10^3/uL Neut % (Auto) 48.2 L (50-75) % Lymph % (Auto) 36.8 (25-40) % [place] % (Auto) 9.8 (3-14) % Eos % (Auto) 4.7 H (2-4) % Baso % (Auto) 0.5 (0-2) % Neut # (Auto) 2700 (7401-4294) /uL Lymph # (Auto) 2100 (9439-5268) /uL [place] # (Auto) 600 (0-900) /uL Eos # (Auto) 300 (0-450) /uL Baso # (Auto) 0 (0-100) /uL Sodium 141 (137-145) mmol/L Potassium 4.4 (3.4-5.1) mmol/L Chloride 107 (98-107) mmol/L Carbon Dioxide 28 (22-32) mmol/L BUN 19 H (7-17) mg/dL Creatinine 0.61 (0.52-1.04) mg/dL Estimated GFR > 60.0 (>60) mL/min BUN/Creatinine Ratio 31.1 H (6-22) Glucose 101 (80-110) mg/dL Calcium 9.7 (8.4-10.2) mg/dL Total Bilirubin 0.3 (0.2-1.3) mg/dL AST 28 (14-36) IU/L ALT 23 (<35) IU/L Alkaline Phosphatase 75 (38-126) U/L Total Protein 7.7 (6.3-8.2) g/dL Albumin 4.6 (3.5-5.0) g/dL Globulin 3.1 (1.7-4.1) g/dL Albumin/Globulin Ratio 1.5 (1.0-2.8) MDM Narrative Medical decision making narrative: Patient presents with relatively rapid onset tongue swelling in isolation. No obvious trigger. No other symptoms, not treated for anaphylaxis. Patient had near if not complete resolution of symptoms with traditional allergic reaction therapies. Did this is allergic reaction versus histamine mediated angioedema. She is observed for 2 hours and resting comfortably with no return of symptoms. Extensive return precautions given and questions answered to her apparent satisfaction Discharge Plan Departure Patient Disposition: Home Clinical Impression: Allergic angioedema Instructions: DI for Adverse Drug Reaction -- Allergic Activity Restrictions/Additional Instructions: *You have been diagnosed with [ allergic reaction] *What to do: * please consider taking [id number] antihistamines such as Benadryl and Pepcid for ongoing treatment. Also, we gave you a dose of Decadron here which will cover you for a few days, which additionally do not write another prescription for a steroid in these circumstances. Also, as we discussed please consider holding off on your gabapentin until your doctor's appointment tomorrow *Please follow up with your primary care provider tomorrow as planned. Prior to going to your visit call them and Let them know you were seen in the Emergency Department *Return to Emergency Department if you should have any new, worsening or concerning symptoms Prescriptions: No Action sumatriptan succinate [Imitrex] 100 mg tablet 100 mg PO Q2H MDD 200mg PRN (Reason: migraine headache) Qty: 12 11RF sumatriptan succinate 6 mg/0.5 mL pen injector 6 mg SUBCUT Q1H MDD 12mg Qty: 18 3RF Rx Instructions: may repeat dose once in 1 hour if not relieved duloxetine 20 mg capsule,delayed release(DR/EC) 20 mg PO BID Qty: 30 0RF Referrals: Ed Castorena MD [Primary Care Provider] -
[2021-03-26 23:30] VITALS: PULSE 71; O2SAT 97
[2021-03-27] VITALS: PULSE 65; O2SAT 96
[2021-03-27 00:14] VITALS: BP 113/62; PULSE 67; O2SAT 96
== END 2021-03-27 00:17 | disposition home or self-care (01) ==
PROVIDERS: Emergency Provider Emergency Medicine; Family Provider Specialist; PCP Student in an Organized Health Care Education/Training Program
DX: T78.3XXA Angioneurotic edema, initial encounter (principal)
CPT/HCPCS: 36415; 80053; 85025; 96374; 96375; 99284; J1100; J1200

== ENCOUNTER → 2021-04-13 09:26 | Outpatient (CLI) | payer OTHER, SELFPAY ==
[2021-03-18 21:04] VITALS: BMI 25.8
--- NOTE | 2021-04-13 09:27 | DI.RAD.S_ITS ---
PROCEDURE: FL BARIUM SWALLOW W AIR COMPARISON: [facility], CT, CT KIDNEY URETER BLADDER (KUB), 03/18/2021, 19:10. [facility], CR, XR GASTROGRAFIN CHALLENGE, 03/20/2021, 12:50. INDICATIONS: Solid food dysphagia FINDINGS: Esophageal mucosa is normal on air-contrast views. On single contrast views, there is prompt transit of contrast material through the esophagus. Occasional non peristaltic contractions were noted. Diffuse esophageal spasm is not visualized. No strictures, extrinsic mass effects, or diverticula. Small hiatal hernia. No elicited gastroesophageal reflux. There is normal transit of a calibrated barium tablet through the esophagus. IMPRESSION: 1. Small hiatal hernia. 2. Occasional mild non-peristaltic tertiary contraction. 3. No stricture or external mass effect. No elicited gastroesophageal reflux. Dictated by: Josef Santiago M.D. on 04/13/2021 at 11:04 Approved by: Josef Santiago M.D. on 04/13/2021 at 11:11
== END ==
PROVIDERS: Family Provider Specialist; PCP Student in an Organized Health Care Education/Training Program; Referring Provider Student in an Organized Health Care Education/Training Program; Visit Provider Student in an Organized Health Care Education/Training Program
DX: R13.10 Dysphagia, unspecified (principal); K44.9 Diaphragmatic hernia without obstruction or gangrene
CPT/HCPCS: 74221

== ENCOUNTER → 2021-05-12 18:19 | Outpatient (CLI) | payer OTHER, SELFPAY ==
--- NOTE | 2021-05-12 18:22 | DI.RAD.S_ITS ---
PROCEDURE: XR ELBOW RT MIN 3V INDICATIONS: right elbow pain TECHNIQUE: 3 views of the elbow were acquired. COMPARISON: None. FINDINGS: Bones: No fractures or dislocations. No suspicious bony lesions. Soft tissues: No elbow joint effusion. No suspicious soft tissue calcifications. IMPRESSION: No trauma found, no joint effusion suspected. Dictated by: German Abad M.D. on 05/12/2021 at 20:20 Approved by: German Abad M.D. on 05/12/2021 at 20:21
== END ==
PROVIDERS: Family Provider Specialist; PCP Student in an Organized Health Care Education/Training Program; Referring Provider Nurse Practitioner Family; Visit Provider Nurse Practitioner Family
DX: S59.901A Unspecified injury of right elbow, initial encounter (principal)
CPT/HCPCS: 73080

== ENCOUNTER → 2022-05-13 13:09 | Outpatient (CLI) | payer OTHER, SELFPAY ==
--- NOTE | 2022-05-13 | DI.MG.S_ITS ---
BILATERAL DIGITAL SCREENING MAMMOGRAM 3D/2D WITH CAD: 05/13/2022 CLINICAL: Routine screening. Comparison is made to exams dated: 02/02/2021 mammogram, 04/17/2017 mammogram, and 01/09/2016 mammogram - [facility]. Both breasts are heterogeneously dense, which may obscure small masses (category c / 51-75% glandular tissue). Current study was also evaluated with a Computer Aided Detection (CAD) system. No significant masses, calcifications, or other findings are seen in either breast. There has been no significant interval change. IMPRESSION: NEGATIVE There is no mammographic evidence of malignancy. A 1 year screening mammogram is recommended. Based on the Tyrer Cuzick model (a risk assessment model) the patient's lifetime risk is 13.3% and her 10 year risk is 5.6%. According to the ACR, ACS, and NCCN guidelines, an annual breast MRI exam along with mammogram is recommended if the patient's lifetime risk is 20% or greater. This exam was interpreted at Station ID: [id number]. NOTE: For mammograms, a report in lay terms will be sent to the patient. Approximately 15% of breast malignancies will not be visualized mammographically. In the management of a palpable breast mass, a negative mammogram must not discourage biopsy of a clinically suspicious lesion. Electronically Signed By: Christa segal/judy:05/13/2022 16:12:57 letter sent: Normal Exam ACR BI-RADS Category 1: Negative [id number]
== END ==
PROVIDERS: Family Provider Specialist; PCP Student in an Organized Health Care Education/Training Program; Referring Provider Student in an Organized Health Care Education/Training Program; Visit Provider Student in an Organized Health Care Education/Training Program
DX: Z12.31 Encounter for screening mammogram for malignant neoplasm of breast (principal)
CPT/HCPCS: 77063; 77067

== ENCOUNTER 2024-08-07 21:20 | Emergency (ER) | payer OTHER, SELFPAY ==
[2024-08-07 21:46] VITALS: BP 137/75; PULSE 55; RESP 16; TEMP 36.1; O2SAT 99; BMI 28.3
--- NOTE | 2024-08-07 22:16 | ED_ITS ---
HPI - Head Injury General Chief complaint: Head Injury Stated complaint: fell on Lt side of face Time Seen by Provider: 08/07/24 22:16 Source: patient Mode of arrival: Ambulatory History of Present Illness HPI Narrative: 63-year-old female history of anxiety depression migraine comes into the ED from home for evaluation of head injury, she states that she was dusting under black very fine and lost balance and fell forward flattening on the right side of her face, she denies any LOC, not on any blood thinners. Patient complaining of pain to the right side of her face/dull headache but no visual disturbances also complaining of right thumb pain. Related Data Previous Rx's ?Medication ?Instructions ?Recorded sumatriptan succinate 100 mg 100 mg PO Q2H PRN migrain e 06/03/22 tablet (Imitrex) headache #20 tabs sumatriptan succinate 6 mg/0.5 mL 6 mg (0.5 mL) SUBCUT Q1H #18 mL 06/03/22 subcutaneous pen injector Allergies Allergy/AdvReac Type Severity Reaction Status Date / Time carbamazepine AdvReac Severe Small Verified 08/07/24 21:46 Bowel Obstruction gabapentin AdvReac Severe Angioedema Verified 08/07/24 21:46 codeine (CODEINE) AdvReac Unknown Nausea Verified 08/07/24 21:46 walnut oil Allergy Unknown Uncoded 08/07/24 21:46 Review of Systems Review of Systems Narrative: General: Denies fever, chills, weight loss HEENT: Positive headache headache, denies eye drainage, eye irritation, head trauma, sore throat, voice change Cardiovascular: Denies any chest pain, palpitations, tachycardia Respiratory: Denies any shortness of breath, cough, wheeze, stridor GI/: Denies any abdominal pain, nausea, vomiting, diarrhea, bright red blood per rectum, melanotic stools, urinary frequency, urinary retention, dysuria, hematuria MSK: Positive right thumb pain Skin: Denies any rashes, lesions, discoloration Neuro: Denies any headache, lightheadedness, dizziness, fainting, weakness Psych: Denies SI/HI Patient History Medical History (Updated 08/07/24 @ 23:39 by Deshawn Gayle DO) Trigeminal neuralgia of right side of face Nondisplaced comminuted fracture of right patella, initial encounter for closed fracture Tuberculosis (1984) Migraines (~1970) Uterine polyp (2014) Acne (1973) Plantar warts (1974) Sleep apnea (2000) Anxiety (~1970) Depression (~1970) PTSD (post-traumatic stress disorder) (1979) Disorder (1960) Restless leg syndrome (~1979) Chronic back pain (2011) Fractures (1982) Scoliosis (~1970) Peritonsillar abscess (2011) Hantavirus infection (1995) Mumps (1968) Macular hole (2015) HPV in female (2010) Infertility (1986) Kidney stones (2010) History of pre-eclampsia (1989) Acute kidney failure (1989) Colon polyps (2014) PAT (paroxysmal atrial tachycardia) (1981) Macular hole of left eye (02/16/16) Migraine with aura and without status migrainosus, not intractable (12/27/14) Surgical History (Updated 04/01/21 @ 11:34 by Ed Castorena MD) Hx of surgical procedure (2002) Hx of oral surgery (1973) Hx of lithotripsy (2013) Hx of breast surgery (2002) Hx of vitrectomy (02/2016) Status post bunionectomy (1985) Status post hysteroscopy (2014) Family History Brother Age: 64 Asperger's syndrome Child Age: 34 Obsessive-compulsive disorder, unspecified type Sensory processing difficulty Father Heart failure, unspecified heart failure chronicity, unspecified heart failure type Mother Macular degeneration Myocardial infarction Grandfather Heart disease Grandmother Heart disease Grandfather Myocardial infarction Grandmother Heart failure, unspecified heart failure chronicity, unspecified heart failure type Sister High cholesterol Sister Brain tumor Sister Cancer Social History household members: spouse Smoking Status: Never smoker alcohol intake: never Smoking Status: Never smoker Exam Narrative Exam Narrative: General: Cooperative, well-developed, not in acute distress HEENT: Ecchymosis noted to the top of the right eye, facial abrasions noted to the right side of the face, no septal hematoma PERRLA, normal sclera, eyelids normal Neck: Active full range of motion, atraumatic, no tenderness to palpation of the midline spine Chest: Normal to inspection, negative crepitus, no overlying erythema e cchymosis Respiratory: Normal respiratory effort, not in acute respiratory distress, clear to auscultation bilaterally negative cough, wheeze, tachypnea, rhonchi, rales Cardiology: Regular rate rhythm negative gallop, murmur, rubs GI/: No tenderness to palpation, soft, non rigid, normal to inspection, exam deferred MSK: Minor tenderness to palpation of the base of the palmar aspect of the right thumb, ecchymosis noted otherwise neurovascularly intact Skin: No rashes or lesions noted Neuro: Alert awake oriented x3, moves all 4 extremities spontaneously, cranial nerves intact, able to answer all questions appropriately follows commands appropriately Psych: Cooperative, negative suicidal or homicidal ideations Initial Vital Signs Initial Vital Signs: Vital Signs Temperature 97.0 F L 08/07/24 21:46 Pulse Rate 55 L 08/07/24 21:46 Respiratory Rate 16 08/07/24 21:46 Blood Pressure 137/75 08/07/24 21:46 Pulse Oximetry 99 08/07/24 21:46 Oxygen Delivery Method Room Air 08/07/24 21:46 Course Orders Ordered: ED Orders 08/07/24 22:17 CT cervical spine wo con Stat CT facial bones wo con Stat CT head/brain wo con Stat 08/07/24 23:06 XR hand RT min 3V Stat Discontinued Medications Oxycodone/Acetaminophen (Oxycodone/Acetaminophen 5/325 Tablet) 1 tab PO NOW ONE Stop: 08/07/24 23:07 Last Admin: 08/07/24 23:16 Dose: 1 tab Vital Signs Vital signs: Vital Signs - 8 hr 08/07/24 21:46 08/07/24 22:43 08/07/24 22:44 Temperature 97.0 F L Pulse Rate 55 L 52 L 52 L Respiratory Rate 16 Blood Pressure 137/75 Pulse Oximetry 99 100 100 Oxygen Delivery Method Room Air Room Air 08/07/24 22:44 08/07/24 23:00 08/07/24 23:01 Temperature Pulse Rate 51 L Respiratory Rate Blood Pressure 120/68 135/74 Pulse Oximetry 100 Oxygen Delivery Method 08/07/24 23:01 08/07/24 23:30 Temperature Pulse Rate 49 L 72 Respiratory Rate Blood Pressure Pulse Oximetry 100 98 Oxygen Delivery Method Room Air MDM - Head Injury Differential Diagnosis Differential diagnosis: Likely other (Thumb fracture, facial bone fracture, intracranial hemorrhage, closed head injury, contusion) Imaging Data CT scan - head: Radiologist's Impression: [place] [address] CT Scan Report Signed Patient: Nuha Rothman MR#: [id number] : 1960 Acct:[id number] Age/Sex: 63 / F Date of Service: 08/07/24 Loc: ED Accession Number: [id number] Procedure: CT head/brain wo con Ordering Provider: Deshawn Gayle D.O. PROCEDURE: CT HEAD/BRAIN WO CON INDICATIONS: Trauma TECHNIQUE: Noncontrast 4.5 mm thick angled axial sections acquired from the foramen magnum to the vertex, with coronal and sagittal reformats. For radiation dose reduction, the following was used: automated exposure control, adjustment of mA and/or kV according to patient size. COMPARISON: None. FINDINGS: Image quality: Diagnostic. CSF spaces: Basal cisterns are patent. No extra-axial fluid collections. Ve ntricles are normal in size and shape. Brain: No midline shift. No intracranial mass effect or hemorrhage. Godinez- white matter interface is normal. Skull and face: Calvarium and visualized facial bones are intact, without suspicious lesions. Right periorbital soft tissue swelling Sinuses: Visualized sinuses and mastoids are clear. IMPRESSION: Right periorbital soft tissue hematoma. No intracranial hemorrhage or mass effect. No skull fracture CT facial bone: Radiologist's Impression: [place] [address] CT Scan Report Signed Patient: Nuha Rothman MR#: [id number] : 1960 Acct:[id number] Age/Sex: 63 / F Date of Service: 08/07/24 Loc: ED Accession Number: [id number] Procedure: CT facial bones wo con Ordering Provider: Deshawn Gayle D.O. PROCEDURE: CT FACIAL BONES WO CON INDICATIONS: trauma, right sided TECHNIQUE: Noncontrast 2.5 mm thick axial images acquired from the mandible through the frontal sinuses, with coronal and sagittal reformatting. For radiation dose reduction, the following was used: automated exposure control, adjustment of mA and/or kV according to patient size. COMPARISON: None. FINDINGS: Image quality: Excellent. Bones and teeth: Orbital olmstead are intact. Sinus olmstead show no fracture or deformity. Nasal bones and septum are intact. Visualized portions of the mandible demonstrate no fractures or subluxation. Zygomatic arches are intact. Pterygoid plates are intact. Visualized portions of the skull base and auditory canals are intact. Sinuses: Paranasal sinuses are aerated, without fluid levels, mucosal thickening, or mucoceles. Mastoid air cells are aerated. Soft tissues: No edema, masses, or fluid collections. No enlarged lymph nodes. No soft tissue lacerations or debris. Vascular: Visualized vascular structures appear normal in the absence of contrast. Bony vascular foramina and canals are intact. IMPRESSION: Right periorbital soft tissue hematoma without orbital fracture. CT - cervical spine: Radiologist's Impression: [place] [id number] CT Scan Report Signed Patient: Nuha Rothman MR#: [id number] : 1960 Acct:[id number] Age/Sex: 63 / F Date of Service: 08/07/24 Loc: ED Accession Number: [id number] Procedure: CT cervical spine wo con Ordering Provider: Deshawn Gayle D.O. PROCEDURE: CT CERVICAL SPINE WO CON INDICATIONS: trauma TECHNIQUE: Noncontrast 3 mm thick sections acquired from the skull base to the T4 level. Sagittal and coronal reformats were then constructed. For radiation dose reduction, the following was used: automated exposure control, adjustment of mA and/or kV according to patient size. COMPARISON: None. FINDINGS: Image quality: Excellent. Bones: No fractures or dislocations. Visualized superior ribs are intact. Soft tissues: Prevertebral soft tissues are normal in thickness. No para vertebral hematomas. No apical pneumothoraces. IMPRESSION: No displaced fracture or traumatic subluxation. Extremity x-ray #1: Radiologist's Impression: [address] [address] XRay Report Signed Patient: Nuha Rothman MR#: [id number] : 1960 Acct:[id number] Age/Sex: 63 / F Date of Service: 08/07/24 Loc: ED Accession Number: [id number] Procedure: XR hand RT min 3V Ordering Provider: Deshawn Gayle D.O. PROCEDURE: XR HAND RT MIN 3V INDICATIONS: pain to base of thumb s/p fall TECHNIQUE: 3 views of the hand(s) acquired. COMPARISON: None. FINDINGS: Bones: No fractures or dislocations. Carpal bones are normally aligned. No suspicious bony lesions. Soft tissues: No suspicious soft tissue calcifications. IMPRESSION: No acute bony abnormality. MDM Narrative Medical decision making narrative: 63-year-old female without any significant past medical history presents to the emergency department from home for evaluation of right thumb/hand pain and right face pain, she states that she was bucking under some finds earlier today at around 8:00 p.m., states that she fell forward hit the right side of her face as well as had a FOOSH of the right upper extremity patient up-to-date to tetanus, she states that she has only having pain to the right thumb as well as a dull headache. Patient with abrasions noted to the right side of the face, ecchymosis and tenderness to palpation of the palmar aspect of the right thumb but neurovascularly intact. CT scan of the head and face only showing right periorbital soft tissue hematoma without any fractures. CT cervical neck without any acute fractures. X-ray of the hand without any acute fractures. Patient will be sent home with symptomatic relief instructed to follow up with primary care in outpatient setting she verbalized understanding of this and agrees to being discharged home with outpatient follow up Discharge Plan Departure Patient Disposition: Home Clinical Impression: Closed head injury, Contusion of hand, Abrasion of face Instructions: DI for Closed Head Injury Activity Restrictions/Additional Instructions: Please follow up with primary care Please read the discharge instructions sheet carefully and bring all papers to all doctor follow-up visits, as it may contain information that your doctor may want to see. Disease processes change and evolve, if your symptoms worsen or if you develop any new symptoms that are concerning to you please return for evaluation. Your evaluation today does not show any evidence of any life- threatening/serious illnesses requiring admission to the hospital or surgery. Please follow-up with your doctor for re-evaluation in approximately 1 day. Seek immediate medical attention for any worrisome symptoms. *If you do not have a primary care provider please contact the [facility] Resource line at [phone]. They will ask some questions about your medical history and help get you set up with a doctor in the community. Prescriptions: No Action sumatriptan succinate 6 mg/0.5 mL pen injector 6 mg SUBCUT Q1H MDD 12mg Qty: 18 3RF Rx Instructions: may repeat dose once in 1 hour if not relieved sumatriptan succinate [Imitrex] 100 mg tablet 100 mg PO Q2H MDD 200mg PRN (Reason: migraine headache) Qty: 20 11RF Stand Alone Forms: Patient Portal/API
[2024-08-07 22:43] VITALS: PULSE 52; O2SAT 100
[2024-08-07 22:44] VITALS: BP 120/68; PULSE 52; O2SAT 100
[2024-08-07 23:00] VITALS: PULSE 51; O2SAT 100
[2024-08-07 23:01] VITALS: BP 135/74; PULSE 49; O2SAT 100
--- NOTE | 2024-08-07 23:06 | DI.RAD.S_ITS ---
PROCEDURE: XR HAND RT MIN 3V INDICATIONS: pain to base of thumb s/p fall TECHNIQUE: 3 views of the hand(s) acquired. COMPARISON: None. FINDINGS: Bones: No fractures or dislocations. Carpal bones are normally aligned. No suspicious bony lesions. Soft tissues: No suspicious soft tissue calcifications. IMPRESSION: No acute bony abnormality. Approved by: Bari Dotson M.D. on 08/07/2024 at 22:31
[2024-08-07] MEDS: OXYCODONE/ACETAMINOPHEN 5/325 TABLET 1 TAB PO (23:16)
[2024-08-07 23:30] VITALS: PULSE 72; O2SAT 98
[2024-08-07] MEDS: OXYCODONE/APAP 5/325 PREPACK 1 BOTTLE MISC (23:54)
== END 2024-08-07 23:55 | disposition home or self-care (01) ==
PROVIDERS: Emergency Provider Student in an Organized Health Care Education/Training Program; Family Provider Specialist
DX: S09.90XA Unspecified injury of head, initial encounter (principal); S60.221A Contusion of right hand, initial encounter; S00.81XA Abrasion of other part of head, initial encounter; W18.30XA Fall on same level, unspecified, initial encounter
CPT/HCPCS: 70450; 70486; 72125; 73130; 99283; 99284

== ENCOUNTER 2025-02-11 05:48 | Emergency (ER) | payer OTHER, SELFPAY ==
[2025-02-11 06:00] VITALS: BP 123/60; PULSE 67; RESP 15; TEMP 36.4; O2SAT 96; BMI 29.7
--- NOTE | 2025-02-11 06:19 | DI.US.S_ITS ---
PROCEDURE: US PERIP VENOUS LOW EXTREM LT INDICATIONS: L leg TECHNIQUE: Real-time imaging, as well as color and pulse Doppler interrogation, were performed of the lower extremity deep veins from the inguinal ligament to the popliteal fossa, with documentation of the visualized calf veins. COMPARISON: [facility], , [facility] VENOUS LOW EXTREM LT, 07/14/2018, 7:22. FINDINGS: Intraluminal filling defects are seen within distal common femoral vein. The vein appears partially compressible and show flow through the area of filling defects. No other area of intraluminal filling defects are seen in visualized left lower extremity veins. IMPRESSION: Nonocclusive venous thrombosis involving left common femoral vein. Dictated by: Maverick Lala M.D. on 02/11/2025 at 8:18 Approved by: Maverick Lala M.D. on 02/11/2025 at 8:18
--- NOTE | 2025-02-11 06:19 | PC.NURSE ---
Patient having her left lower leg rebuild after injury 40+ years ago. Surgery on 02/04, was placed in a walking boot. Follow up appointment was yesterday 02/10/25. Woke up suddenly in middle of the night (0400) with left lower calf pain. They had a migraine which she gets and has medication. Medication helped but pain in leg continues.
--- NOTE | 2025-02-11 06:19 | ED.GENADULT ---
HPI - General Adult <Paul Oconnell, DO - Last Filed: 02/11/25 06:23> General Chief complaint: Extremity Injury, Lower Stated complaint: Lt ankle pain, had surgery 02/04 Time Seen by Provider: 02/11/25 05:50 Source: patient and family Mode of arrival: Wheelchair History of Present Illness HPI narrative: 64y F had L ankle surgery 02/04 seen yesterday for postop care with no issue presents with L calf pain at 430am today despite taking pain medication told by Ortho MD to come to ER to have US r/o DVT. Pt denies headache, chest pain, sob, jain, back pain, abd pain. Other than what is stated 14 pt ROS is negative. Related Data Home Medications ?Medication ?Instructions ?Recorded ?Confirmed atorvastatin 10 mg tablet 10 mg PO DAILY 02/11/25 02/11/25 fluoxetine 40 mg capsule 40 mg PO DAILY 02/11/25 02/11/25 fremanezumab-vfrm 225 mg/1.5 mL 225 mg SUBCUT .monthly 02/11/25 02/11/25 subcutaneous auto-injector (Ajovy) omeprazole 20 mg capsule,delayed 20 mg PO DAILY 02/11/25 02/11/25 release oxybutynin chloride 5 mg 5 mg PO DAILY 02/11/25 02/11/25 tablet,extended release 24 hr oxycodone 5 mg tablet 5 - 10 mg PO Q4H PRN pain 02/11/25 02/11/25 Previous Rx's ?Medication ?Instructions ?Recorded sumatriptan succinate 100 mg 100 mg PO Q2H PRN migraine 06/03/22 tablet (Imitrex) headache #20 tabs sumatriptan succinate 6 mg/0.5 mL 6 mg (0.5 mL) SUBCUT Q1H #18 mL 06/03/22 subcutaneous pen injector apixaban 5 mg tablet 5 mg PO .other #33 tabs 02/11/25 apixaban 5 mg tablet See Rx Instructions .Route 02/11/25 .COMPLEX #33 tabs ondansetron 4 mg disintegrating 4 mg PO Q8H #20 tabs 02/11/25 tablet ondansetron 4 mg disintegrating 4 mg PO Q8H PRN nausea and 02/11/25 tablet vomiting #20 tabs Allergies Allergy/AdvReac Type Severity Reaction Status Date / Time carbamazepine AdvReac Severe Small Verified 02/11/25 05:57 Bowel Obstruction gabapentin AdvReac Severe Angioedema Verified 02/11/25 05:57 codeine (CODEINE) AdvReac Unknown Nausea Verified 02/11/25 05:57 walnut oil Allergy Unknown Uncoded 02/11/25 05:57 Review of Systems <Paul Oconnell DO - Last Filed: 02/11/25 06:23> Review of Systems ROS Unobtainable: All systems reviewed & are unremarkable except as noted in HPI and below Patient History <Paul Oconnell DO - Last Filed: 02/11/25 06:23> Medical History (Updated 02/11/25 @ 09:37 by Ruchi Earl MD) Trigeminal neuralgia of right side of face Nondisplaced comminuted fracture of right patella, initial encounter for closed fracture Tuberculosis (1984) Migraines (~1970) Uterine polyp (2014) Acne (1973) Plantar warts (1974) Sleep apnea (2000) Anxiety (~1970) Depression (~1970) PTSD (post-traumatic stress disorder) (1979) Disorder (1960) Restless leg syndrome (~1979) Chronic back pain (2011) Fractures (1982) Scoliosis (~1969) Peritonsillar abscess (2011) Hantavirus infection (1995) Mumps (1968) Macular hole (2015) HPV in female (2010) Infertility (1986) Kidney stones (2010) History of pre-eclampsia (1989) Acute kidney failure (1989) Colon polyps (2014) PAT (paroxysmal atrial tachycardia) (1981) Macular hole of left eye (02/16/16) Migraine with aura and without status migrainosus, not intractable (12/27/14) Surgical History (Updated 04/01/21 @ 11:34 by Ed Castorena MD) Hx of surgical procedure (2002) Hx of oral surgery (1973) Hx of lithotripsy (2013) Hx of breast surgery (2002) Hx of vitrectomy (02/2016) Status post bunionectomy (1985) Status post hysteroscopy (2014) Family History Brother Age: 64 Asperger's syndrome Child Age: 34 Obsessive-compulsive disorder, unspecified type Sensory processing difficulty Father Heart failure, unspecified heart failure chronicity, unspecified heart failure type Mother Macular degeneration Myocardial infarction Grandfather Heart disease Grandmother Heart disease Grandfather Myocardial infarction Grandmother Heart failure, unspecified heart failure chronicity, unspecified heart failure type Sister High cholesterol Sister Brain tumor Sister Cancer Social History household members: spouse Smoking Status: Never smoker alcohol intake: never Smoking Status: Never smoker Exam <Paul Oconnell DO - Last Filed: 02/11/25 06:23> Narrative Exam Narrative: GENERAL: [64] year old patient appears stated age. Well-developed patient, in mild distress. HEAD: Atraumatic. Normocephalic. EYES: Pupils equal round and reactive. Extraocular motions intact. No scleral icterus. No injection or drainage. NECK: Trachea midline. Non tender CARDIOVASCULAR: Regular rate and rhythm without murmurs, gallops, or rubs. RESPIRATORY: Clear to auscultation. Breath sounds equal bilaterally. No wheezes, rales, or rhonchi. EXTREMITIES: L prox calf TTP mildly inc girth vs R calf, LLE incision site surgical healing scar intact with no pus, warmth, redness or bleeding. No fluctuance, motor/sensory intact +2 DP +2PT cap refill<2secs BACK: Nontender without deformity or crepitance. No flank tenderness. NEURO: AOx3. SKIN: No rash or erythema of visible areas Initial Vital Signs Initial Vital Signs: Vital Signs Temperature 97.6 F 02/11/25 06:00 Pulse Rate 67 02/11/25 06:00 Respiratory Rate 15 02/11/25 06:00 Blood Pressure 123/60 02/11/25 06:00 Pulse Oximetry 96 02/11/25 06:00 Oxygen Delivery Method Room Air 02/11/25 06:00 <Ruchi Earl MD - Last Filed: 02/13/25 22:23> Initial Vital Signs Initial Vital Signs: Vital Signs Temperature 97.6 F 02/11/25 06:00 Pulse Rate 67 02/11/25 06:00 Respiratory Rate 15 02/11/25 06:00 Blood Pressure 123/60 02/11/25 06:00 Pulse Oximetry 96 02/11/25 06:00 Oxygen Delivery Method Room Air 02/11/25 06:00 Course <Paul Oconnell DO - Last Filed: 02/11/25 06:23> Orders Ordered: Discontinued Medications Apixaban (Apixaban 5 Mg Tablet) 10 mg PO NOW ONE Stop: 02/11/25 09:09 Last Admin: 02/11/25 09:18 Dose: 10 mg Documented By: GERARD Fluoxetine HCl (Fluoxetine 20 Mg Capsule) 40 mg PO NOW ONE Stop: 02/11/25 07:48 Last Admin: 02/11/25 08:12 Dose: 40 mg Documented By: PERLA Morphine Sulfate (Morphine 2 Mg/Ml Inj) 2 mg IV NOW ONE Stop: 02/11/25 07:40 Last Admin: 02/11/25 07:49 Dose: 2 mg Documented By: GERARD Ondansetron HCl (Ondansetron 4 Mg/2 Ml Inj) 4 mg IV Q6HR PRN PRN Reason: Nausea And Vomiting Last Admin: 02/11/25 07:49 Dose: 4 mg Documented By: GERARD Oxycodone HCl (Oxycodone Ir 5 Mg Tablet) 5 mg PO NOW ONE Stop: 02/11/25 09:09 Last Admin: 02/11/25 09:17 Dose: 5 mg Documented By: GERARD Oxycodone HCl (Oxycodone Ir 5 Mg Tablet) 5 mg PO NOW ONE Stop: 02/11/25 09:15 Last Admin: 02/11/25 09:18 Dose: 5 mg Documented By: GERARD Pantoprazole Sodium (Pantoprazole Dr 20 Mg Tablet) 20 mg PO NOW ONE Stop: 02/11/25 08:01 Last Admin: 02/11/25 08:12 Dose: 20 mg Documented By: PERLA Tramadol HCl (Tramadol 50 Mg Tablet) 50 mg PO NOW ONE Stop: 02/11/25 06:20 Last Admin: 02/11/25 06:24 Dose: 50 mg Documented By: AB Vital Signs Vital signs: Vital Signs - 8 hr 02/11/25 09:36 Pulse Rate 57 L Blood Pressure 157/78 H Pulse Oximetry 97 Oxygen Delivery Method Room Air <Ruchi Earl MD - Last Filed: 02/13/25 22:23> Orders Ordered: Discontinued Medications Apixaban (Apixaban 5 Mg Tablet) 10 mg PO NOW ONE Stop: 02/11/25 09:09 Last Admin: 02/11/25 09:18 Dose: 10 mg Documented By: GERARD Fluoxetine HCl (Fluoxetine 20 Mg Capsule) 40 mg PO NOW ONE Stop: 02/11/25 07:48 Last Admin: 02/11/25 08:12 Dose: 40 mg Documented By: PERLA Morphine Sulfate (Morphine 2 Mg/Ml Inj) 2 mg IV NOW ONE Stop: 02/11/25 07:40 Last Admin: 02/11/25 07:49 Dose: 2 mg Documented By: GERARD Ondansetron HCl (Ondansetron 4 Mg/2 Ml Inj) 4 mg IV Q6HR PRN PRN Reason: Nausea And Vomiting Last Admin: 02/11/25 07:49 Dose: 4 mg Documented By: GERARD Oxycodone HCl (Oxycodone Ir 5 Mg Tablet) 5 mg PO NOW ONE Stop: 02/11/25 09:09 Last Admin: 02/11/25 09:17 Dose: 5 mg Documented By: GERARD Oxycodone HCl (Oxycodone Ir 5 Mg Tablet) 5 mg PO NOW ONE Stop: 02/11/25 09:15 Last Admin: 02/11/25 09:18 Dose: 5 mg Documented By: GERARD Pantoprazole Sodium (Pantoprazole Dr 20 Mg Tablet) 20 mg PO NOW ONE Stop: 02/11/25 08:01 Last Admin: 02/11/25 08:12 Dose: 20 mg Documented By: PERLA Tramadol HCl (Tramadol 50 Mg Tablet) 50 mg PO NOW ONE Stop: 02/11/25 06:20 Last Admin: 02/11/25 06:24 Dose: 50 mg Documented By: AB Vital Signs Vital signs: Vital Signs - 8 hr 02/11/25 09:36 Pulse Rate 57 L Blood Pressure 157/78 H Pulse Oximetry 97 Oxygen Delivery Method Room Air Medical Decision Making <Ruchi Earl MD - Last Filed: 02/13/25 22:23> Imaging Data US - DVT: Radiologist's Impression: PROCEDURE: US [facility] VENOUS LOW EXTREM LT TECHNIQUE: Real-time imaging, as well as color and pulse Doppler interrogation, were performed of the lower extremity deep veins from the inguinal ligament to the popliteal fossa, with documentation of the visualized calf veins. COMPARISON: [facility], US, US PERIP VENOUS LOW EXTREM LT, 07/14/2018, 7:22. FINDINGS: Intraluminal filling defects are seen within distal common femoral vein. The vein appears partially compressible and show flow through the area of filling defects. No other area of intraluminal filling defects are seen in visualized left lower extremity veins. IMPRESSION: Nonocclusive venous thrombosis involving left common femoral vein. Discharge Plan Departure Patient Disposition: Home Clinical Impression: Postoperative non-occlusive thrombus, Acute pain of left lower extremity Activity Restrictions/Additional Instructions: You were seen in the emergency department for increasing left lower extremity pain. In the ER: - You were given pain medications that adequately controlled your pain. Please continue to take your medications with applesauce or any other lubricating substance. - Ultrasound of your left lower extremity revealed partial clot in your leg. Discharge instructions: -- Please follow the activity restrictions provided by your telephone solicitor, Dr. Sykes. -- Continue taking your patient medications as prescribed by Dr. Sykes. -- Continue post-operative stool softener. Take this medication as long and you are on narcotic pain medications. -- START apixaban (eliquis) 10mg daily for 7 days, followed by 5mg twice daily. Be careful to not fall while on blood thinners. Present to the nearest ER for trauma concerning of any internal bleeding. -- Follow up with Dr. Sykes as previously prescribed on Friday, for your post-operative appointment. -- Follow up with your primary care provider in 1-2 weeks to continue to manage your blood thinner medications. -- Return to the ER if you develop any chest pain, shortness of breath, or any other concerning signs for blood clots. Prescriptions: New ondansetron 4 mg tablet,disintegrating 4 mg PO Q8H Qty: 20 0RF apixaban 5 mg tablet 5 mg PO .other Qty: 33 0RF Rx Instructions: Start medication on 02/12/25 - Take 2 tabs everyday from 02/12 - 02/18. Then take one tab everyday after. apixaban 5 mg tablet See Rx Instructions .ROUTE .COMPLEX Qty: 33 0RF Rx Instructions: Start on 02/12/25 - Take two pills by month until 02/18. Afterwards take 1 pill everyday. ondansetron 4 mg tablet,disintegrating 4 mg PO Q8H PRN (Reason: nausea and vomiting) Qty: 20 0RF No Action sumatriptan succinate 6 mg/0.5 mL pen injector 6 mg SUBCUT Q1H MDD 12mg Qty: 18 3RF Rx Instructions: may repeat dose once in 1 hour if not relieved sumatriptan succinate [Imitrex] 100 mg tablet 100 mg PO Q2H MDD 200mg PRN (Reason: migraine headache) Qty: 20 11RF fluoxetine 40 mg capsule 40 mg PO DAILY atorvastatin 10 mg tablet 10 mg PO DAILY oxybutynin chloride 5 mg tablet extended release 24hr 5 mg PO DAILY omeprazole 20 mg capsule,delayed release(DR/EC) 20 mg PO DAILY oxycodone 5 mg tablet 5 - 10 mg PO Q4H PRN (Reason: pain) Ajovy Autoinjector 225 mg/1.5 mL auto-injector 225 mg SUBCUT .monthly Patient Comments: [NO ORIGINAL SIG] Stand Alone Forms: Patient Portal/API ED Sign-out <Ruchi Earl MD - Last Filed: 02/13/25 22:23> [facility] [id number] Patient signed out from Dr. Oconnell and evaluated by myself. She is complaining of globus sensation after taking tramadol. Home medication includes omeprazole for hiatal hernia, fluoxetine, oxybutynin, statin. She continue to state that she has significant 6/10 pain that increases to 9/10 intermittently. Requesting IV pain medications. 08:18 Venous ultrasound of the left lower extremity revealed nonocclusive venous thrombosis involving the left common femoral vein. 08:45 Discussed case with telephone solicitor, original surgeon. No concern for rebleeding at surgical site and ok with starting anticoagulation therapy. She has follow up with him in 3 days. 09:42 Informed patient of work of findings as well as evidence based recommendation for initiation anticoagulation therapy. she was given initial dose of apixaban in the ER and sent home with 30 day supply with recommendation for follow up with primary care physician for continued management of thrombosis in left lower extremity. Ruchi Earl MD Emergency Medicine Attending 09:42 02/11/2025
[2025-02-11] MEDS: ONDANSETRON 4 MG/2 ML INJ IV (07:49)
[2025-02-11] MEDS: MORPHINE 2 MG/ML INJ IV (07:49)
[2025-02-11] MEDS: PANTOPRAZOLE DR 20 MG TABLET PO (08:12)
[2025-02-11] MEDS: APIXABAN 5 MG TABLET 10 MG PO (09:18)
[2025-02-11 09:36] VITALS: BP 157/78; PULSE 57; O2SAT 97
== END 2025-02-11 09:55 | disposition home or self-care (01) ==
PROVIDERS: Emergency Provider Student in an Organized Health Care Education/Training Program
DX: I82.402 Acute embolism and thrombosis of unspecified deep veins of left lower extremity (principal); T81.89XA Other complications of procedures, not elsewhere classified, initial encounter
CPT/HCPCS: 93971; 96374; 96375; 99284; J2270; J2405

== ENCOUNTER 2025-02-18 14:07 | Emergency (ER) | payer OTHER, SELFPAY ==
[2025-02-18] VITALS (11 sets, daily range): BP systolic 115–144; BP diastolic 58–75; PULSE 63–90; RESP 12–23; TEMP 36.7; O2SAT 95–99; BMI 29.1
--- NOTE | 2025-02-18 14:17 | EKG_ITS ---
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
--- NOTE | 2025-02-18 14:17 | DI.CT.S_ITS ---
PROCEDURE: CT ANGIO CHEST PE PROTOCOL INDICATIONS: DVT 1 week ago sudden onset of chest pain and cough TECHNIQUE: After the administration of intravenous contrast, 2 mm thick sections acquired from the pulmonary apices to the posterior costophrenic angles. 3-dimensional maximum intensity projection (MIP) coronal and sagittal reformats were then acquired through the thorax. For radiation dose reduction, the following was used: automated exposure control, adjustment of mA and/or kV according to patient size. COMPARISON: None. FINDINGS: Quality: Diagnostic. Vasculature: Aorta: No aneurysm. Pulmonary arteries: No emboli. Lungs: Parenchyma: Mild dependent atelectasis. No focal consolidation or nodule.. Airways: Patent. Pleura: No pneumothorax. No pleural effusion. Mediastinum: Thyroid: Unremarkable. Esophagus: Moderate hiatal hernia.. Heart: Normal size. Lymph nodes: No adenopathy. Other: Chest wall: Unremarkable. Upper abdomen: Unremarkable. Bones: No aggressive osseous lesion. IMPRESSION: No pulmonary embolus. No acute cardiopulmonary process. Dictated by: Charly South M.D. on 02/18/2025 at 15:28 Approved by: Charly South M.D. on 02/18/2025 at 15:35
--- OUTSIDE RECORDS SUMMARY | 2025-02-18 14:40 | XMS_ITS | Encounter Summary ---
Author Organization [facility] Address [address] [place] [id number] Care Team Providers Care Slate Worker Name Role Phone Mathew Clark PA-C Primary Care Provi lizzie Encounter Details Date Type Department Care Team ([facility] Contact Info) Description 07/10/2024 Automated Outreach Text O ptout on 07/10/2024 - FIT Kit mailing Reminder 6 month - reminder to complete & return FIT kit, text w/ weblink sent Social History Tobacco Use Types Packs/Day Years Used Date Smoking Tobacco: Never Passive Smoke Exposure: Never Smokeless Tobacco: Never Comments No Sex and Gender Information Value Date Recorded Sex Assigned at Female 03/09/2021 7:28 AM PST Legal Sex Female 12:51 PM PDT Gender Identity Female 03/09/2021 7:28 AM PST Sexual Orientation Not on file documented as of this encounter Plan of Treatment Not on file documented as of this encounter Visit Diagnoses Not on filedocumented in this encounter Care Teams Slate Worker Relationship Specialty Start Date End Date Mathew Clark PA-C [address] [place] [address] PCP - General 03/17/23 08/01/24 documented as of this encounter
[2025-02-18 14:43] LABS: Add Manual Diff / Slide Review NO; Hematocrit 41.5 % (36-46); Hemoglobin 14.0 g/dL (12.0-16.0); Lymphocytes Absolute Auto 1300 /uL (1100-4500); Mean Corpuscular HGB Conc 33.8 % (30-36); Mean Corpuscular Hemoglobin 30.8 PG (26-34); Mean Corpuscular Volume 91.3 fL (80-100); Platelet Count 320 X10^3/uL (150-400)
[2025-02-18 14:51] LABS: INR 1.2 (0.9-1.3); Prothrombin Time 13.9 SECONDS (9.4-12.5)
[2025-02-18 14:53] LABS: PTT Partial Thromboplastin Tim 32 SECONDS (25.1-36.5)
[2025-02-18 14:54] LABS: Alanine Aminotransferase 49 IU/L (<35); Albumin 4.7 g/dL (3.5-5.0); Albumin Globulin Ratio 1.4 (1.0-2.8); Alkaline Phosphatase 83 U/L (38-126); Blood Urea Nitrogen 23 mg/dL (7-17); Calcium 9.6 mg/dL (8.4-10.2); Carbon Dioxide 24 mmol/L (22-32); Chloride 106 mmol/L (98-107); Creatine Kinase 33 U/L (30-135); Estimated Glomerular Filt Rate > 60 mL/min (>60); Globulin 3.3 g/dL (1.7-4.1); Glucose 113 mg/dL (70-99); HEMOLYSIS 25 (0-50); Lipase 165 U/L (23-300); Magnesium 1.8 mg/dL (1.6-2.3); Potassium 4.2 mmol/L (3.4-5.1); Sodium 139 mmol/L (137-145); Total Protein 8.0 g/dL (6.3-8.2)
[2025-02-18 15:06] LABS: NT-proBNP (BNP-Adult 18+) < 20 pg/mL (<125); Troponin I < 0.012 ng/mL (0.01-0.034)
[2025-02-18] MEDS: ASPIRIN 81 MG CHEW TAB 324 MG PO (15:10)
[2025-02-18] MEDS: MORPHINE 2 MG/ML INJ 4 MG IV (15:56)
--- NOTE | 2025-02-18 17:33 | ED.CHESTPAIN ---
HPI - Chest Pain General Chief Complaint: Chest Pain Stated Complaint: Poss Pulmonary Ambulasism Time Seen by Provider: 02/18/25 14:18 Source: patient Mode of arrival: Wheelchair Limitations: no limitations History of Present Illness HPI narrative: 64-year-old female recently diagnosed with DVT status post left ankle surgery on 02/04/2025 on Eliquis presents with midsternal chest pain this afternoon 1:30 p.m. that radiates to the right side and then to her left side. She denies any nausea vomiting diaphoresis back pain neck pain jaw pain. She has not take anything for this. She has been taking her Eliquis as previously directed. Patient did also endorse a dry nonproductive cough also. She is currently pain-free now. Other than what is stated 14 point review of systems negative. Related Data Home Medications ?Medication ?Instructions ?Recorded ?Confirmed atorvastatin 10 mg tablet 10 mg PO DAILY 02/11/25 02/11/25 fluoxetine 40 mg capsule 40 mg PO DAILY 02/11/25 02/11/25 fremanezumab-vfrm 225 mg/1.5 mL 225 mg SUBCUT .monthly 02/11/25 02/11/25 subcutaneous auto-injector (Ajovy) omeprazole 20 mg capsule,delayed 20 mg PO DAILY 02/11/25 02/11/25 release oxybutynin chloride 5 mg 5 mg PO DAILY 02/11/25 02/11/25 tablet,extended release 24 hr oxycodone 5 mg tablet 5 - 10 mg PO Q4H PRN pain 02/11/25 02/11/25 Previous Rx's ?Medication ?Instructions ?Recorded sumatriptan succinate 100 mg 100 mg PO Q2H PRN migraine 06/03/22 tablet (Imitrex) headache #20 tabs sumatriptan succinate 6 mg/0.5 mL 6 mg (0.5 mL) SUBCUT Q1H #18 mL 06/03/22 subcutaneous pen injector apixaban 5 mg tablet 5 mg PO .other #33 tabs 02/11/25 apixaban 5 mg tablet See Rx Instructions .Route 02/11/25 .COMPLEX #33 tabs ondansetron 4 mg disintegrating 4 mg PO Q8H #20 tabs 02/11/25 tablet ondansetron 4 mg disintegrating 4 mg PO Q8H PRN nausea and 02/11/25 tablet vomiting #20 tabs Allergies Allergy/AdvReac Type Severity Reaction Status Date / Time carbamazepine AdvReac Severe Small Verified 02/18/25 14:12 Bowel Obstruction gabapentin AdvReac Severe Angioedema Verified 02/18/25 14:12 codeine (CODEINE) AdvReac Unknown Nausea Verified 02/18/25 14:12 walnut oil Allergy Unknown Uncoded 02/18/25 14:12 Review of Systems Review of Systems ROS Unobtainable: All systems reviewed & are unremarkable except as noted in HPI and below Patient History Medical History (Updated 02/18/25 @ 18:35 by Palu Oconnell DO) Trigeminal neuralgia of right side of face Nondisplaced comminuted fracture of right patella, initial encounter for closed fracture Tuberculosis (1984) Migraines (~1969) Uterine polyp (2014) Acne (1973) Plantar warts (1974) Sleep apnea (2000) Anxiety (~1970) Depression (~1970) PTSD (post-traumatic stress disorder) (1979) Disorder (1960) Restless leg syndrome (~1979) Chronic back pain (2011) Fractures (1982) Scoliosis (~1969) Peritonsillar abscess (2011) Hantavirus infection (1995) Mumps (1968) Macular hole (2015) HPV in female (2010) Infertility (1986) Kidney stones (2010) History of pre-eclampsia (1989) Acute kidney failure (1989) Colon polyps (2014) PAT (paroxysmal atrial tachycardia) (1981) Macular hole of left eye (02/16/16) Migraine with aura and without status migrainosus, not intractable (12/27/14) Surgical History (Updated 04/01/21 @ 11:34 by Ed Castorena MD) Hx of surgical procedure (2002) Hx of oral surgery (1973) Hx of lithotripsy (2013) Hx of breast surgery (2002) Hx of vitrectomy (02/2016) Status post bunionectomy (1985) Status post hysteroscopy (2014) Family History Brother Age: 64 Asperger's syndrome Child Age: 34 Obsessive-compulsive disorder, unspecified type Sensory processing difficulty Father Heart failure, unspecified heart failure chronicity, unspecified heart failure type Mother Macular degeneration Myocardial infarction Grandfather Heart disease Grandmother Heart disease Grandfather Myocardial infarction Grandmother Heart failure, unspecified heart failure chronicity, unspecified heart failure type Sister High cholesterol Sister Brain tumor Sister Cancer Social History household members: spouse Smoking Status: Never smoker alcohol intake: never Smoking Status: Never smoker Exam Narrative Exam Narrative: GENERAL: [64] year old patient appears stated age. Well-developed patient, in mild distress. HEAD: Atraumatic. Normocephalic. EYES: Pupils equal round and reactive. Extraocular motions intact. No scleral icterus. No injection or drainage. ENT: Nose without bleeding, purulent drainage. Throat without erythema, tonsillar hypertrophy or exudate. Airway patent. NECK: Trachea midline. Non tender CARDIOVASCULAR: Regular rate and rhythm without murmurs, gallops, or rubs. RESPIRATORY: Clear to auscultation. Breath sounds equal bilaterally. No wheezes, rales, or rhonchi. GASTROINTESTINAL: Abdomen soft, non-tender, nondistended. EXTREMITIES: No edema or joint tenderness. BACK: Nontender without deformity or crepitance. No flank tenderness. NEURO: AOx3. SKIN: No rash or erythema of visible areas Initial Vital Signs Initial Vital Signs: Vital Signs Temperature 98.1 F 02/18/25 14:11 Pulse Rate 90 02/18/25 14:11 Respiratory Rate 20 02/18/25 14:11 Blood Pressure 142/63 H 02/18/25 14:11 Pulse Oximetry 99 02/18/25 14:11 Oxygen Delivery Method Room Air 02/18/25 14:11 Scores HEART Score Heart Score history: Slightly Suspicious Heart Score EKG: Non-Specific repolarization disturbance Heart Score Age: 45-64 years old Heart Score risk factors: > 3 risk factors or hx of atherosclerotic disease Heart Score troponin: < or = to normal limit Heart Score Total: 4 Course Orders Ordered: ED Orders 02/18/25 14:17 CT angio chest PE protocol Stat EKG-12 Lead Stat 02/18/25 14:32 Complete Blood Count AUTO DIFF Stat Comprehensive Metabolic Panel Stat Lipase Stat Magnesium Stat NT-proBNP (BNP-Adult 18+) Stat PTT Partial Thromboplastin James Stat Prothrombin Time INR Stat Troponin & CK Cardiac Panel Stat Discontinued Medications Aspirin (Aspirin 81 Mg Chew Tab) 324 mg PO NOW ONE Stop: 02/18/25 14:18 Last Admin: 02/18/25 15:10 Dose: 324 mg Documented By: NIRMAL Morphine Sulfate (Morphine 2 Mg/Ml Inj) 4 mg 0.05 mg/kg (4 mg) IV NOW ONE Stop: 02/18/25 15:43 Last Admin: 02/18/25 15:56 Dose: 4 mg Documented By: NIRMAL Vital Signs Vital signs: Vital Signs - 8 hr 02/18/25 14:11 02/18/25 14:31 02/18/25 15:00 Temperature 98.1 F Pulse Rate 90 78 Respiratory Rate 20 18 Blood Pressure 142/63 H 126/70 Pulse Oximetry 99 99 Oxygen Delivery Method Room Air 02/18/25 15:00 02/18/25 15:30 02/18/25 15:49 Temperature Pulse Rate 73 77 Respiratory Rate 15 23 Blood Pressure 144/71 H Pulse Oximetry 96 95 Oxygen Delivery Method 02/18/25 15:49 02/18/25 16:00 02/18/25 16:00 Temperature Pulse Rate 76 72 Respiratory Rate 21 21 Blood Pressure 130/75 Pulse Oximetry 97 97 Oxygen Delivery Method 02/18/25 16:30 02/18/25 16:30 02/18/25 17:00 Temperature Pulse Rate 67 Respiratory Rate 21 Blood Pressure 122/70 119/62 Pulse Oximetry 97 Oxygen Delivery Method 02/18/25 17:00 Temperature Pulse Rate 69 Respiratory Rate 16 Blood Pressure Pulse Oximetry 97 Oxygen Delivery Method MDM - Chest Pain Lab Data 02/18/25 14:32 02/18/25 14:32 Labs: Lab Results 02/18/25 Range/Units 14:32 WBC 4.9 (4.5-11.0) X10^3/uL RBC 4.55 (4.0-5.2) X10^6/uL Hgb 14.0 (12.0-16.0) g/dL Hct 41.5 (36-46) % MCV 91.3 (80-100) fL MCH 30.8 (26-34) PG MCHC 33.8 (30-36) % RDW 14.5 (11.6-14.8) % Plt Count 320 (150-400) X10^3/uL Neut % (Auto) 61.6 (50-75) % Lymph % (Auto) 26.8 (25-40) % [place] % (Auto) 8.3 (3-14) % Eos % (Auto) 2.8 (2-4) % Baso % (Auto) 0.5 (0-2) % Neut # (Auto) 3000 (7613-8420) /uL Lymph # (Auto) 1300 (7821-9535) /uL [place] # (Auto) 400 (0-900) /uL Eos # (Auto) 100 (0-450) /uL Baso # (Auto) 0 (0-100) /uL PT 13.9 H (9.4-12.5) SECONDS INR 1.2 (0.9-1.3) APTT 32 (25.1-36.5) SECONDS Sodium 139 (137-145) mmol/L Potassium 4.2 (3.4-5.1) mmol/L Chloride 106 (98-107) mmol/L Carbon Dioxide 24 (22-32) mmol/L BUN 23 H (7-17) mg/dL Creatinine 0.71 (0.52-1.04) mg/dL Estimated GFR > 60 (>60) mL/min BUN/Creatinine Ratio 32.4 H (6-22) Glucose 113 H (70-99) mg/dL Calcium 9.6 (8.4-10.2) mg/dL Magnesium 1.8 (1.6-2.3) mg/dL Total Bilirubin 0.6 (0.2-1.3) mg/dL AST 48 H (14-36) IU/L ALT 49 H (<35) IU/L Alkaline Phosphatase 83 (38-126) U/L Total Creatine Kinase 33 (30-135) U/L Troponin I < 0.012 (0.01-0.034) ng/mL NT-Pro-B Natriuret Pep < 20 (<125) pg/mL Total Protein 8.0 (6.3-8.2) g/dL Albumin 4.7 (3.5-5.0) g/dL Globulin 3.3 (1.7-4.1) g/dL Albumin/Globulin Ratio 1.4 (1.0-2.8) Lipase 165 (23-300) U/L Imaging Data CT scan - chest: Radiologist's Impression: [address] [address] [address] Scan Report Signed Patient: Nuha Rothman MR#: [id number] : 1960 Acct:[id number] Age/Sex: 64 / F Date of Service: 02/18/25 Loc: ED Accession Number: [id number] Procedure: CT angio chest PE protocol Ordering Provider: Paul Oconnell D.O. PROCEDURE: CT ANGIO CHEST PE PROTOCOL INDICATIONS: DVT 1 week ago sudden onset of chest pain and cough TECHNIQUE: After the administration of intravenous contrast, 2 mm thick sections acquired from the pulmonary apices to the posterior costophrenic angles. 3-dimensional maximum intensity projection (MIP) coronal and sagittal reformats were then acquired through the thorax. For radiation dose reduction, the following was used: automated exposure control, adjustment of mA and/or kV according to patient size. COMPARISON: None. FINDINGS: Quality: Diagnostic. Vasculature: Aorta: No aneurysm. Pulmonary arteries: No emboli. Lungs: Parenchyma: Mild dependent atelectasis. No focal consolidation or nodule.. Airways: Patent. Pleura: No pneumothorax. No pleural effusion. Mediastinum: Thyroid: Unremarkable. Esophagus: Moderate hiatal hernia.. Heart: Normal size. Lymph nodes: No adenopathy. Other: Chest wall: Unremarkable. Upper abdomen: Unremarkable. Bones: No aggressive osseous lesion. IMPRESSION: No pulmonary embolus. No acute cardiopulmonary process. Dictated by: Charly South M.D. on 02/18/2025 at 15:28 Approved by: Charly South M.D. on 02/18/2025 at 15:35 ECG Data Interpretation: NSR HR 74 OK 150 QRS [address]-t wave change No previous EKG to compare MDM Narrative Medical decision making narrative: All labwork, vital signs, band builder note, medication list, previous ER visits and all imaging studies reviewed. 2 sets troponin normal. Chest pain free. On eliquis. Ekg NSR with no ischemic changes note. Pt given morphine 4mg IV x1. Heart score 4. Differential dx PE, stemi, nstemi, unstable angina, gerd, anxiety. Discharge Plan Departure Patient Disposition: Home Clinical Impression: Chest pain Instructions: DI for Chest Pain Activity Restrictions/Additional Instructions: Return with new or worsening symptoms. Follow up with PCP on Friday if no improvement in symptoms. Prescriptions: No Action sumatriptan succinate 6 mg/0.5 mL pen injector 6 mg SUBCUT Q1H MDD 12mg Qty: 18 3RF Rx Instructions: may repeat dose once in 1 hour if not relieved sumatriptan succinate [Imitrex] 100 mg tablet 100 mg PO Q2H MDD 200mg PRN (Reason: migraine headache) Qty: 20 11RF fluoxetine 40 mg capsule 40 mg PO DAILY atorvastatin 10 mg tablet 10 mg PO DAILY oxybutynin chloride 5 mg tablet extended release 24hr 5 mg PO DAILY omeprazole 20 mg capsule,delayed release(DR/EC) 20 mg PO DAILY oxycodone 5 mg tablet 5 - 10 mg PO Q4H PRN (Reason: pain) Ajovy Autoinjector 225 mg/1.5 mL auto-injector 225 mg SUBCUT .monthly Patient Comments: [NO ORIGINAL SIG] ondansetron 4 mg tablet,disintegrating 4 mg PO Q8H Qty: 20 0RF apixaban 5 mg tablet 5 mg PO .other Qty: 33 0RF Rx Instructions: Start medication on 02/12/25 - Take 2 tabs everyday from 02/12 - 02/18. Then take one tab everyday after. apixaban 5 mg tablet See Rx Instructions .ROUTE .COMPLEX Qty: 33 0RF Rx Instructions: Start on 02/12/25 - Take two pills by month until 02/18. Afterwards take 1 pill everyday. ondansetron 4 mg tablet,disintegrating 4 mg PO Q8H PRN (Reason: nausea and vomiting) Qty: 20 0RF Stand Alone Forms: Patient Portal/API
[2025-02-18 18:23] LABS: Troponin I < 0.012 ng/mL (0.01-0.034)
== END 2025-02-18 18:50 | disposition home or self-care (01) ==
PROVIDERS: Emergency Provider Family Medicine
DX: R07.89 Other chest pain (principal)
CPT/HCPCS: 36415; 71275; 80053; 82550; 83690; 83735; 83880; 84484; 85025; 85610; 85730; 93005; 96374; 99284; J2270; Q9967